=== PATIENT | male | born 2000 | race African-American/Black ===

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

== ENCOUNTER → 2019-10-28 18:02 | Outpatient (CLI) | payer MEDICARE, SELFPAY | DX: Z20.828 Contact with and (suspected) exposure to other viral communicable diseases (principal) | CPT/HCPCS: 87635; 94799; C9803; U0003 ==

== ENCOUNTER 2019-10-31 15:28 | Emergency (ER) | payer SELFPAY ==
[2019-10-31 15:31] VITALS: BP 137/59; PULSE 110; RESP 17; TEMP 38.7; O2SAT 97; BMI 34.7
--- NOTE | 2019-10-31 15:58 | ED.VIS.GEN ---
History of Present Illness Chief Complaint: Headache Informant: Patient Onset: Weeks - 1 Context: Gradual Onset Timing: Continuous Quality: aching Location: all over Current Severity: Moderate Maximum Severity: Moderate Worsened by: light Relieved by: nothing Associated Symptoms: fevers, bilat anteriolateral neck soreness, sore throat, back pain, vertigo Narrative: For about 1 week, patient has had gradual onset of pain on the left neck area below his ear, followed by same symptoms on the other side without stiffness although it hurts to turn his head/neck, sore throat with odynophagia, fevers, headache, aching throughout his back but not his arms or legs. He was initially seen in urgent care diagnosed with a bilateral ear infection. He states they put him on drops. He has not been swimming anytime recently. He has had no pain in either ear, nor changes in his hearing, nor discharge, nor did it hurt for his ears to be examined with the examiner's hands or the ear speculum on the otoscope when he was seen at urgent care, although he has had tinnitus off and on and some symptoms of vertigo when he turns his head on occasion. These have made him nauseated once but for the most part he has not had any nausea or vomiting. He denies any significant cough or shortness of breath. He has been taking in very little fluids because hurts so bad to swallow. Patient presents during the national coronavirus emergency declaration/pandemic. He denies any known contact with anyone infected with COVID-19. He denies traveling out of the immediate area recently. He was tested for COVID-19 4 days ago, as an outpatient here. It returned negative. Past Medical History - Allergies and Home Meds Allergies/Adverse Reactions: Allergies No Known Allergies Allergy (Verified 10/31/19 15:30) Primary Care Physician: Care Physician,No Primary [Primary Care Provider] - Lives: Spouse/ Significant Other Smoking Status: Never smoker Review of Systems General: Reports: Fever, Malaise. Denies: Chills, Sweats Eyes: Denies: Visual changes - bilaterally, Diplopia ENT: Reports: Sore throat, - - tinnitus. Denies: Bilateral ear pain, Rhinorrhea Cardiovascular: Denies: Chest pain, Palpitations Respiratory: Denies: Dyspnea, Cough, Dyspnea on exertion Gastrointestinal: Denies: Abdominal pain, Nausea, Vomiting, Diarrhea, Melena, Hematochezia Genitourinary: Denies: Dysuria, Hematuria, Frequency Musculoskeletal: Reports: Neck pain, Back pain. Denies: Arthralgias, Swelling, Extremity Pain Skin: Denies: Rash, Wounds Neurological: Reports: Headache, - - occ vertigo. Denies: Weakness, Numbness Physical Exam Vital Signs/Narrative: Vital Signs Temp Pulse Resp BP Pulse Ox 10/31/19 15:31 101.6 F H 110 H 17 137/59 H 97 Inital Vital Signs reviewed: Yes General: Well nourished, Well developed, No Acute Distress - malaised. photophobic. Head: Normocephalic, Atraumatic Eyes: Perrl, EOMI, - - nml conj bilat ENT: Moist mucous membranes, No rhinorrhea, TM's clear, - - Normal EAC bilaterally except for small amounts of soft cerumen. No erythema, swelling, no pain with manipulating the pinna or the tragus bilaterally. No mastoid tenderness, swelling, erythema. Neck: Supple - without meningismus, - - tender bilat superficial cervical anterior LAD. no posterior LAD. Neg Kernig and Brudzinski signs. Cardiovascular: Regular rate, Regular rhythm, No murmurs, Tachycardia - mild Respiratory: No distress, CTA bilaterally, Chest nontender Abdomen: Soft, Nontender, Nondistended, Normal bowel sounds Back: Nontender, Normal Inspection. Negative for: CVA tenderness Extremities: Nontender, No edema. Negative for: Calf Tenderness Skin: Normal color, No rash, No Trauma Neurological: Alert, Oriented x3, Cranial nerves II-XII grossly intact, Normal Strength, Normal Sensation, Normal DTR, Normal Gait Psychological: Normal affect, Normal Mood Diagnostic/Tx/Re-eval 10/31/19 15:55 Mucosa - Throat Group A Streptococcus Rapid Screen - Preliminary Laboratory Results 10/31/19 10/31/19 15:55 15:55 WBC 11.1 H RBC 4.39 L Hgb 13.5 Hct 37.4 L MCV 85.2 MCH 30.8 MCHC 36.1 H RDW Std Deviation 37.8 RDW Coeff of Bina 12.0 Plt Count 186 MPV 9.6 Immature Gran % (Auto) 0.500 Neut % (Auto) 74.7 H Lymph % (Auto) 12.5 L [place] % (Auto) 11.8 H Eos % (Auto) 0.2 Baso % (Auto) 0.3 Absolute Neuts (auto) 8.3 H Absolute Lymphs (auto) 1.39 Nucleated RBC % 0 Sodium 131 L Potassium 3.3 L Chloride 99 Carbon Dioxide 25.0 Anion Gap 7 BUN 14 Creatinine 1.13 Estim Creat Clear Calc 100.04 Est GFR (MDRD) Af Amer 105 Est GFR (MDRD) Non-Af 87 BUN/Creatinine Ratio 12.4 Glucose 132 H Calcium 8.5 - Medical Decision Making Patient was treated with IV fluids, Reglan, Toradol, meclizine, and a dose of Decadron given his pharyngitis. He does have some improvement of most of his symptoms on reevaluation. His labs are as above. His rapid strep returned negative, I repeated a COVID test given his continued fevers and symptoms that could be consistent with that, and precautions were taken while he was in the emergency department, although he had a negative test 4 days ago. We have been seeing quite a few false negatives and he may be 1. As a result I recommend quarantining himself at home until the test results return, he was given appropriate instructions on this and he does understand as does a significant other. We discussed reasons to return. Certainly other viral etiologies are in the differential, as we have been seeing some of those on other patients in the emergency department recently. ED Disposition - Plan for ED Patient: Disposition: Home or Assisted Living Diagnosis: Viral syndrome, Vertigo Instructions: ED Viral Syndrome, ED Vertigo Unspecified Prescriptions: Meclizine HCl [Antivert] 25 mg PO Q8H PRN #16 tab PRN Reason: Vertigo Transmission Status: Pending to [id number] Referrals: Leslie Cast [NON-STAFF] - 1 Week if not improving
[2019-10-31] MEDS: Ketorolac 30 MG/ML Syringe IV (16:12)
[2019-10-31] MEDS: 0.9% Normal Saline 1,000 ML 999 ML IV (16:12)
[2019-10-31] MEDS: Meclizine HCl 25 MG Tablet PO (16:13)
[2019-10-31] MEDS: dexAMETHasone 10 MG/ML Vial IV (16:13)
[2019-10-31] MEDS: Metoclopramide 10 MG/2 ML Vial 5 MG IV (16:13)
[2019-10-31 16:18] LABS: Absolute Lymphocyte Count 1.39 X10^3/uL (0.83-4.51); Absolute Neutrophil Count 8.3 X10^3/uL (2.0-7.7); Basophil# 0.03 X10^3/uL; Basophil% 0.3 % (0-1); Eosinophil# 0.02 X10^3/uL; Eosinophils% 0.2 % (0-5); Hematocrit 37.4 % (40-54); Hemoglobin 13.5 g/dL (13.0-16.5); Lymphocyte # 1.39 X10^3/ul (4.0); Lymphocyte % 12.5 % (19-41); Mean Corp Hgb Conc 36.1 g/dL (32-36); Mean Corpuscular Hgb 30.8 pg (27.0-32.0); Mean Corpuscular Volume 85.2 fL (80-94); Mean Platelet Vol. 9.6 fl (6.2-12.0); Monocyte# 1.31 X10^3/uL; Monocyte% 11.8 % (0-10); NRBC Flagged by Analyzer 0 % (0-5); Neutrophil % 74.7 % (47-70); Platelet Count 186 K/mm3 (150-450); RBC Distribution Width SD 37.8 fl (35.1-43.9); Red Blood Count 4.39 M/mm3 (4.6-6.2); White Blood Count 11.1 K/mm3 (4.4-11.0)
[2019-10-31 17:36] LABS: Anion Gap 7 (5-15); BUN 14 mg/dL (7-18); BUN/Creat Ratio 12.4 RATIO (10-20); Calcium,Total 8.5 mg/dL (8.5-10.1); Chloride 99 mmol/L (98-107); Creatinine, Serum 1.13 mg/dL (0.70-1.30); EST Glomerular Filtration Rate 87 mL/min (>60); Est Glom Filt Rate - Afr Amer 105 mL/min (>60); Estimated Creatinine Clearance 100.04 ml/min; Glucose 132 mg/dL (74-106); Potassium 3.3 mmol/L (3.5-5.1); Sodium Level 131 mmol/L (136-145)
[2019-10-31 19:35] VITALS: BP 128/97; PULSE 81; RESP 22; O2SAT 98
--- NOTE | 2019-10-31 19:37 | ED.RN ---
THIS NURSE REVIEWED D/C INSTRUCTIONS WITH PT AND VISITOR. BOTH VERBALIZED UNDERSTANDING OF INSTRUCTIONS. IV D/C. IV CATHETER INTACT. PT TOLERATED WELL. PT DENIES FURTHER NEEDS OR QUESTIONS AT THIS TIME
== END 2019-10-31 19:39 | disposition home or self-care (01) ==
PROVIDERS: Emergency Provider Emergency Medicine
DX: B34.9 Viral infection, unspecified (principal); R42 Dizziness and giddiness
CPT/HCPCS: 80048; 85025; 87635; 87880; 94799; 96361; 96374; 96375; 99284; J7030; A4216; U0003

== ENCOUNTER → 2020-10-18 11:39 | Outpatient (CLI) | payer OTHER, SELFPAY ==
[2020-10-18 15:05] LABS: Absolute Lymphocyte Count 2.34 X10^3/uL (0.83-4.51); Absolute Neutrophil Count 4.5 X10^3/uL (2.0-7.7); Basophil# 0.05 X10^3/uL; Basophil% 0.6 % (0-1); Eosinophil# 0.41 X10^3/uL; Eosinophils% 5.3 % (0-5); Hematocrit 44.7 % (40-54); Hemoglobin 14.9 g/dL (13.0-16.5); Lymphocyte # 2.34 X10^3/ul (0.83-4.51); Lymphocyte % 30.1 % (19-41); Mean Corp Hgb Conc 33.3 g/dL (32-36); Mean Corpuscular Hgb 29.7 pg (27.0-32.0); Mean Corpuscular Volume 89.2 fL (80-94); Monocyte# 0.49 X10^3/uL; Monocyte% 6.3 % (0-10); NRBC Flagged by Analyzer 0 % (0-5); Neutrophil # 4.47 X10^3/uL (2.7-7.7); Neutrophil % 57.4 % (47-70); Platelet Count 285 K/mm3 (150-450); RBC Distribution Width CV 12.1 % (11.6-14.6); RBC Distribution Width SD 39.9 fl (35.1-43.9); Red Blood Count 5.01 M/mm3 (4.6-6.2); White Blood Count 7.8 K/mm3 (4.4-11.0)
[2020-10-18 15:29] LABS: AST(SGOT) 21 U/L (15-37); Alanine Aminotransfer ALT/SGPT 39 U/L (16-61); Alkaline Phosphatase 66 U/L (45-117); Anion Gap 3 (5-15); BUN 16 mg/dL (7-18); BUN/Creat Ratio 16.1 RATIO (10-20); Calcium,Total 9.1 mg/dL (8.5-10.1); Chloride 105 mmol/L (98-107); Cholesterol 175 mg/dL (200); Creatinine, Serum 0.99 mg/dL (0.70-1.30); EST Glomerular Filtration Rate 100 mL/min (>60); Est Glom Filt Rate - Afr Amer 121 mL/min (>60); Globulin 4.2 g/dL (2.2-4.2); Glucose 95 mg/dL (74-106); High Density Lipoprotein 38 mg/dL; Potassium 4.2 mmol/L (3.5-5.1); Protein, Total 8.2 g/dL (6.4-8.2); Sodium Level 138 mmol/L (136-145); Thyroid Stim Hormone (TSH) 1.53 uIU/mL (0.358-3.74); Triglycerides 67 mg/dL; Very Low Density Lipoprotein 13 mg/dL (5-40)
== END ==
LOC: MFPLAB 11:42
PROVIDERS: PCP Family Medicine; Referring Provider Family Medicine; Visit Provider Family Medicine
DX: E66.01 Morbid (severe) obesity due to excess calories (principal); R10.9 Unspecified abdominal pain
CPT/HCPCS: 36415; 80053; 80061; 84443; 85025

== ENCOUNTER → 2020-10-21 08:43 | Outpatient (CLI) | payer OTHER, SELFPAY ==
--- NOTE | 2020-10-21 11:05 | CT_ITS ---
EXAM DESCRIPTION: CT scan of the abdomen and pelvis CLINICAL HISTORY: 20 years Male, [facility] [employer] COMPARISON: None TECHNIQUE: A CT scan of the abdomen and pelvis was performed with IV contrast contrast administration. Oral contrast was also administered. Coronal and sagittal reconstruction images were reviewed. This exam was performed according to our departmental dose-optimization program, which includes automated exposure control, adjustment of the mA and/or kV according to patient size and/or use of iterative reconstruction technique. FINDINGS: The lung bases and the base of the heart are normal. The liver is normal.The spleen is normal.The adrenal glands are normal.The head, body, and tail of the pancreas are normal. Mild left renal hydronephrosis is identified with a dilated renal pelvis possibly due to an extrarenal pelvis. No obvious evidence of left obstructive uropathy is seen. On the right side, there is an asymmetrically dilated right renal pelvis and calyces with the dilated right renal pelvis extending somewhat inferiorly. A partial right UPJ obstruction cannot be completely excluded. This also may simply represent an asymmetrical extrarenal pelvis with renal pelvic dilatation. If clinically indicated a Lasix Renogram could differentiate between these 2 entities. In any event no calculus obstruction of the right ureter is seen. The abdominal aortal is normal along its course and distribution. No paraortic lymphadenopathy is seen. No abdominal masses or lesions are seen. The CT scan of the pelvis was then reviewed. The common iliac vessels, external iliac vessels, and common femoral vessels are normal along their course and distribution No pelvis masses or lesions are seen. The appendix was carefully evaluated and is normal. No pericecal inflammatory reaction is seen. Bone scanning windows of the lumbar spine and pelvis were reviewed in the coronal and sagittal planes and appear to be normal. CT/Abdomen/Pelvis WITH Contrast IMPRESSION: 1. Bilateral extrarenal pelvises are identified significantly more pronounced on the right with right renal hydronephrosis. Because of the right renal hydronephrosis, an underlying partial UPJ obstruction cannot be completely excluded, and if clinically indicated, a LASIX renogram might be helpful for further evaluation. 2. The appendix was carefully evaluated and is normal. Electronically Signed: Jez Banegas DO at 11:43 EDT Tel , Service support ,
== END ==
PROVIDERS: PCP Family Medicine; Referring Provider Family Medicine; Visit Provider Family Medicine
DX: R10.13 Epigastric pain (principal)
CPT/HCPCS: 74177; Q9967; A4216

== ENCOUNTER 2021-04-21 23:12 | Emergency (ER) | payer OTHER, SELFPAY ==
[2021-04-21 23:13] VITALS: BP 181/93; PULSE 85; RESP 18; TEMP 36.8; O2SAT 98; BMI 40.3
--- NOTE | 2021-04-21 23:26 | CT_ITS ---
STUDY: CT ABDOMEN AND PELVIS WITHOUT CONTRAST REASON FOR EXAM: Male, 20 years old. right flank pain RADIATION DOSAGE (If Supplied By Facility): CTDIvol = ( 23.30 ) mGy, DLP = ( 1234.08 ) mGycm TECHNIQUE: Transaxial 2.5 mm images were obtained from the dome of the diaphragm to the symphysis pubis without oral contrast, and without intravenous contrast. Sagittal and coronal images were reconstructed. This examination is limited for the evaluation of gastrointestinal, solid organs and vascular structures due to the lack of intravenous and oral contrast. There is obesity, the entirety of soft tissue is not imaged. Individualized dose optimization techniques were used for this CT. COMPARISON: None. FINDINGS: The visualized lung bases are unremarkable. The visualized portions of the heart are within normal limits. Normal liver. Normal gallbladder and extrahepatic biliary system. Normal spleen. Normal pancreas. Normal bilateral adrenal glands. Slight increase in size of the previously seen larger right extrarenal pelvis with more indistinct on 2 of the right kidney and renal pelvis. The ureter is decompressed at the right UPJ level. There is a punctate nonobstructing mid renal calculus which was seen on previous examination. The right ureter is decompressed. There is no periureteral stranding. Stable small left extrarenal pelvis. Normal visualized stomach. Normal small intestine. Normal colon. The appendix is visualized and appears normal. Increase in size and numbers of ileocolonic mesenteric lymph nodes. Normal abdominal aorta. Normal inferior vena cava. Normal retroperitoneum. Decompressed thick-walled urinary bladder with mild pericystic stranding.. Normal abdominal wall. Normal osseous structures. CT/Abdomen/Pelvis without Cont IMPRESSION: Moderate to severe right hydronephrosis with indistinct contour, increase of previously seen large right extrarenal pelvis with abrupt caliber change at the expected location of the UPJ as on previous examination. No obstructing renal or ureteral calculi or hydroureter detected. A superimposed inflammation may cause similar reported clinical symptoms. Stable left small extrarenal pelvis with caliber change at the UPJ levels. Underlying UPJ stenosis bilaterally possible. Correlation to previous assessment recommended. Mesenteric adenitis suspected. No lymphadenopathy within the retroperitoneum or amy There is no appendicitis, colitis, ascites, abscess, collection, perforation or obstruction. Electronically Signed: Malka Mcleod MD at 0:25 EST Reading Location ID and State: , Service support ,
--- NOTE | 2021-04-21 23:27 | EDS_ITS ---
HPI History of Present Illness Chief Complaint: Flank Pain Detail of Chief Complaint: Flank/abdomen pain that started approximately 7:30 PM Informant: patient Onset/Context/Timing Current Severity: 12/26 Narrative Narrative: Patient presents with right-sided abdomen/flank pain that started at 7:30 PM. 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 Patient sees Dr. Thomson for this. He currently rates pain a 10 out of 10. He has had one episode of vomiting. Patient denies any fever. He denies diarrhea. He denies blood in stool or black tarry stool. Often times when he vomits he states that he has a small amount of blood in the vomitus. Prior similar symptoms: Yes PFSH PFSH Home Medications Amox-Clav 875-125 mg Tablet 1 tab PO DAILY 10/31/19 [History Last Taken Unknown] meclizine 25 mg PO Q8H PRN #16 tab 10/31/19 [Rx Last Taken Unknown] ofloxacin 1 drp EACH EAR DAILY 10/31/19 [History Last Taken Unknown] hydrocodone-acetaminophen 1 tab PO Q4H PRN PRN 2 Days #10 tablet 04/22/21 [Rx Last Taken Unknown] ondansetron 4 mg PO Q8H PRN PRN #10 tab 04/22/21 [Rx Last Taken Unknown] Allergy/AdvReac Type Severity Reaction Status Date / Time No Known Allergies Allergy Verified 04/21/21 23:15 Social History Smoking Status: Never smoker ROS ROS ED Constitutional Constitutional ED: Reports systems reviewed and no addt'l complaints, except as documented; Denies body ache(s), change in weight or chills Eyes Eyes: Denies acute decrease in peripheral vision, change in vision, double visi on or loss of vision ENT ENT ED: Reports none; Denies ear pain, lip swelling, loss taste/smell, neck pa in, otalgia or sore throat Cardiovascular Cardiovascular: Reports none; Denies abdominal pain, chest pain with activity, leg edema, lightheadedness, palpitations, rapid heart rate or syncope Respiratory/Chest Respiratory/Chest: Reports none; Denies change in mental status, dry cough, dyspnea, hemoptysis, shortness of breath at rest or shortness of breath with exertion Gastrointestinal Gastrointestinal: Reports none, abdominal pain, nausea and vomiting; Denies change in stool character, diarrhea, hematemesis, hematochezia, melena or rectal bleeding Genitourinary Genitourinary ED: Reports none; Denies abdominal discomfort, anuria, dysuria, genital pain or polyuria Musculoskeletal Musculoskeletal: Reports none and back pain; Denies arthralgias, difficulty walking, extremity pain, muscle weakness or myalgias Integumentary Reports none; Denies abscess or rash Neurologic Neurologic: Reports none; Denies abnormal gait, confusion, focal weakness, frequent falls, headache(s), loss of vision, numbness, paresthesias, radicular pain, vertigo or weakness Psychiatric Psychiatric: Reports systems reviewed and no addt'l complaints, except as documented and none; Denies behavioral changes, confusion, difficulty concentrating, hallucinations, suicidal ideation, tactile hallucinations or visual hallucinations Endocrine Endocrinology: Denies none, cold intolerance, excessive sweating, fatigue or heat intolerance Hematologic/Lymphatic Hematologic/Lymphatic: Reports none; Denies anemia, easy bleeding or easy bruising Allergic/Immunologic Allergic/Immunologic ED: Denies as per HPI, none, lip swelling, mouth swelling, throat swelling, tongue swelling or hives EXAM Physical Exam Const Vital Signs: 04/21/21 23:13 04/21/21 23:20 Temperature 98.3 F Temperature Source Temporal Pulse Rate 85 Respiratory Rate 18 Respiratory Pattern Normal Blood Pressure 181/93 H Blood Pressure Mean 122 Pulse Ox 98 Oxygen Delivery Method Room Air Positive well nourished and well developed General Appearance ED: well developed and NAD HEENT Reports TM's clear and moist mucous membranes normocephalic and atraumatic; Negative for trauma or tenderness Tympanic Membrane ED: Yes TM's clear Eyes PERRL and EOMs intact bilaterally General Eye ED: Negative for pale conjunctiva or scleral icterus Neck no lymphadenopathy, supple and no JVD General: Negative for tenderness Chest Wall inspection of chest normal and palpation of chest normal Chest: Negative for tenderness Resp normal respiratory effort and clear to auscultation bilaterally Effort and Inspection: Negative for respiratory distress or pain with movement Auscultation: Negative for rhonchi, wheezes or diminished lung sounds Cardio regular rate, regular rhythm, S1 normal heart sound, S2 normal heart sound and no murmurs Peripheral Pulses: pulses 2+ throughout GI normal to inspection, nondistended, normoactive bowel sounds, soft to palpation, non-distended and no masses GI Narrative: Patient has tenderness palpation of the right upper quadrant with some guarding. There is no rebound, rigidity, or peritoneal signs. Back/Spine no thoracic nor lumbar tenderness Back/Spine Narrative: Patient with CVA tenderness on the right. Extremity normal to inspection General Extremety ED: Negative for edema General Extremity: Negative for edema Neuro oriented x3, CN's II-XII intact bilaterally, no sensory deficits noted and gait normal Sensorium / Orientation: awake, alert, oriented to person, oriented to place and oriented to time Motor Exam: strength 5/5 throughout and strength abnormal Psych mental status grossly normal Skin no rashes or lesions noted and no wounds MDM MDM MDM Narrative Medical decision making narrative: IV line established on arrival. Patient was medicated with morphine, Zofran, and Toradol. Patient had good pain relief with that and on repeat examination rates his pain a 4 out of 10. Lab work-up was unremarkable. He did have a slightly elevated creatinine of 1.31. CT flank showed a dilated right renal pelvis somewhat increased compared to prior study. Findings consistent with patient's history of UPJ syndrome. 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 At this point patient will be given a prescription for [place] and Zofran and advised to follow-up with his urologist. Advised to return if worsening pain, fever, vomiting, or condition should worsen anyway. Patient tells me he has this type of pain about twice a month. Lab Data Attestation: I reviewed the patient's lab results. Labs: Laboratory Results - last 24 hr 04/21/21 04/21/21 04/21/21 23:40 23:42 23:42 WBC 10.4 RBC 4.80 Hgb 14.8 Hct 41.5 MCV 86.5 MCH 30.8 MCHC 35.7 RDW Std Deviation 37.7 RDW Coeff of Bina 11.9 Plt Count 279 MPV 9.6 Immature Gran % (Auto) 0.400 Neut % (Auto) 60.8 Lymph % (Auto) 26.6 [place] % (Auto) 6.3 Eos % (Auto) 5.3 H Baso % (Auto) 0.6 Absolute Neuts (auto) 6.3 Absolute Lymphs (auto) 2.76 Nucleated RBC % 0 Differential Comment SCANNED Atypical Lymphocytes RARE Sodium 140 Potassium 3.7 Chloride 108 H Carbon Dioxide 27.0 Anion Gap 5 BUN 12 Creatinine 1.31 H Estim Creat Clear Calc 88.45 Est GFR (MDRD) Af Amer 87 Est GFR (MDRD) Non-Af 72 BUN/Creatinine Ratio 9.2 L Glucose 104 Calcium 8.8 Total Bilirubin 0.30 AST 22 ALT 44 Alkaline Phosphatase 72 Total Protein 7.6 Albumin 3.9 Globulin 3.7 Albumin/Globulin Ratio 1.1 Urine Color Yellow Urine Clarity Clear Urine pH 6.5 Ur Specific [place] 1.015 Urine Protein Negative Urine Glucose (UA) Normal Urine Ketones Negative Urine Occult Blood Negative Urine Nitrite Negative Urine Bilirubin Negative Urine Urobilinogen Normal Ur Leukocyte Esterase Negative Urine RBC 0 SEEN Urine WBC 0 SEEN Ur Squamous Epith Cells 0 SEEN Urine Bacteria 0 SEEN Urine Mucus 0 SEEN Radiography Diagnostic Testing: Clinical Impression(s) from Imaging Studies Abdomen/Pelvis CT 04/21/21 23:26 IMPRESSION: Moderate to severe right hydronephrosis with indistinct contour, increase of previously seen large right extrarenal pelvis with abrupt caliber change at the expected location of the UPJ as on previous examination. No obstructing renal or ureteral calculi or hydroureter detected. A superimposed inflammation may cause similar reported clinical symptoms. Stable left small extrarenal pelvis with caliber change at the UPJ levels. Underlying UPJ stenosis bilaterally possible. Correlation to previous assessment recommended. Mesenteric adenitis suspected. No lymphadenopathy within the retroperitoneum or amy There is no appendicitis, colitis, ascites, abscess, collection, perforation or obstruction. Electronically Signed: Malka Mcleod MD at 0:25 EST Reading Location ID and State: , Service support , Discharge Plan Triage Chief Complaint: Flank Pain ED Provider: Den Keys Dx/Rx/DC Orders Clinical Impression: Acute flank pain Instructions: ED Flank Pain, Uncertain Cause Prescriptions: New hydrocodone-acetaminophen [hydrocodone-acetaminophen] 1 TABLET tablet 1 tab PO Q4H PRN PRN (Reason: Pain) 2 Days Qty: 10 RF: 0 ondansetron [ondansetron] 4 MG tablet 4 mg PO Q8H PRN PRN (Reason: Nausea) Qty: 10 RF: 0 No Action Amox-Clav 875-125 mg Tablet 1 TAB 1 tab PO DAILY RF: 0 ofloxacin 1 DROP bottle 1 drp EACH EAR DAILY RF: 0 meclizine 25 MG tablet 25 mg PO Q8H PRN (Reason: Vertigo) Qty: 16 RF: 0 Primary Care Provider: Jez Rosales Referrals: Demetris Thomson MD [STAFF PHYSICIAN] - 3-5 Days Jez Rosales MD [Primary Care Provider] - Activity Restrictions/Additional Instructions: Follow-up with your urologist regarding your UPJ syndrome Disposition Disposition: Home, Self Care
[2021-04-21] MEDS: Ketorolac 15 MG/ML Vial IV (23:39)
[2021-04-21] MEDS: Morphine 4 MG/ML Syringe IV (23:39)
[2021-04-21] MEDS: Ondansetron 4 MG/2 ML Vial IV (23:39)
[2021-04-21] MEDS: 0.9% Normal Saline 1,000 ML 150 ML IV (23:39)
[2021-04-21 23:48] LABS: Bacteria 0 SEEN /hpf (None Seen); Mucous, Urine 0 SEEN /hpf (<or=2+); Red Blood Cells-Urine 0 SEEN /hpf (0-5); Squamous Epithelial Cells - UA 0 SEEN /hpf (0-5); White Blood Cells 0 SEEN /hpf (0-5)
[2021-04-21 23:51] LABS: Color, Urine Yellow (Yellow); Glucose, Dipstick Normal (Normal); Ketone-Dipstick Negative (Negative); Leukocyte Esterase-Dipstick Negative /ul (Negative); Nitrite-Dipstick Negative (Negative); Occult Blood-Urine Negative /ul (Negative); Protein-Dipstick Negative (Negative); Specific Gravity, Urine 1.015 (1.002-1.030); Urine Bilirubin Dipstick Negative (Negative); Urine Clarity Clear (Clear); Urine Urobilinogen Normal (Normal); Urine pH 6.5 (5.0 - 8.0)
[2021-04-21 23:54] LABS: Absolute Lymphocyte Count 2.76 X10^3/uL (0.83-4.51); Absolute Neutrophil Count 6.3 X10^3/uL (2.0-7.7); Basophil# 0.06 X10^3/uL; Basophil% 0.6 % (0-1); Differential Indicated SCAN CRITERIA MET; Eosinophil# 0.55 X10^3/uL; Eosinophils% 5.3 % (0-5); Hematocrit 41.5 % (40-54); Hemoglobin 14.8 g/dL (13.0-16.5); Lymphocyte # 2.76 X10^3/ul (0.83-4.51); Lymphocyte % 26.6 % (19-41); Mean Corp Hgb Conc 35.7 g/dL (32-36); Mean Corpuscular Hgb 30.8 pg (27.0-32.0); Mean Corpuscular Volume 86.5 fL (80-94); Mean Platelet Vol. 9.6 fl (6.2-12.0); Monocyte# 0.65 X10^3/uL; Monocyte% 6.3 % (0-10); NRBC Flagged by Analyzer 0 % (0-5); Neutrophil % 60.8 % (47-70); POSITIVE MORPHOLOGY YES; Platelet Count 279 K/mm3 (150-450); RBC Distribution Width CV 11.9 % (11.6-14.6); RBC Distribution Width SD 37.7 fl (35.1-43.9); White Blood Count 10.4 K/mm3 (4.4-11.0)
[2021-04-22 00:07] LABS: ALB/GLOB Ratio 1.1 RATIO (0.9-2.4); AST(SGOT) 22 U/L (15-37); Alanine Aminotransfer ALT/SGPT 44 U/L (16-61); Albumin, Serum 3.9 g/dL (3.2-5.0); Alkaline Phosphatase 72 U/L (45-117); Anion Gap 5 (5-15); BUN 12 mg/dL (7-18); BUN/Creat Ratio 9.2 RATIO (10-20); Calcium,Total 8.8 mg/dL (8.5-10.1); Chloride 108 mmol/L (98-107); Creatinine, Serum 1.31 mg/dL (0.70-1.30); EST Glomerular Filtration Rate 72 mL/min (>60); Est Glom Filt Rate - Afr Amer 87 mL/min (>60); Estimated Creatinine Clearance 88.45 ml/min; Globulin 3.7 g/dL (2.2-4.2); Glucose 104 mg/dL (74-106); Potassium 3.7 mmol/L (3.5-5.1); Protein, Total 7.6 g/dL (6.4-8.2); Sodium Level 140 mmol/L (136-145)
[2021-04-22 00:14] LABS: Atypical Lymphocyte RARE %; Differential Comment SCANNED
[2021-04-22] MEDS: Morphine 4 MG/ML Syringe IV (00:47)
[2021-04-22 00:48] VITALS: BP 127/70
== END 2021-04-22 00:55 | disposition home or self-care (01) ==
PROVIDERS: Emergency Provider Emergency Medicine; PCP Family Medicine; Visit Provider Emergency Medicine
DX: R10.9 Unspecified abdominal pain (principal); N28.89 Other specified disorders of kidney and ureter; R11.10 Vomiting, unspecified
CPT/HCPCS: 74176; 80053; 81001; 85025; 96361; 96374; 96375; 99283; J7030; A4216; J2405

== ENCOUNTER 2021-05-16 20:34 | Emergency (ER) | payer OTHER, SELFPAY ==
[2021-05-16 20:34] VITALS: BP 148/94; PULSE 100; RESP 18; TEMP 36.7; O2SAT 98; BMI 41.8
--- NOTE | 2021-05-16 22:03 | EDS_ITS ---
HPI History of Present Illness Chief Complaint: Laceration Detail of Chief Complaint: Right index finger Informant: patient Occured/Mechanism Mechanism/Context: Yes injury Onset/Context/Timing Onset: Today and Hours Context: Sudden Onset Timing: Continuous Quality of Pain: Sharp Current Severity: Mild Maximum Severity: Mild Associated Symptoms Associated Symptoms: Negative for Parasthesia, Weakness and Loss of Funtion Narrative Narrative: 21-year-old male [id number]. Was moving a cage and it slipped pulling or carrying it and cut the palmar aspect of his right index finger at the distal phalanx. Denies any other injuries. He believes his last tetanus shot was about 9 years ago and wants to be updated. Tetanus Immunization: 5-10 years Prior similar symptoms: No Recent Illness/Hospitalization: No PFSH PFSH Medical History no medical history Home Medications NK 05/16/21 [History Last Taken Unknown] Allergy/AdvReac Type Severity Reaction Status Date / Time No Known Allergies Allergy Verified 05/16/21 20:36 Social History Smoking Status: Never smoker ROS ROS ED ROS Narrative Denies recent illness. Review of Systems ROS Unobtainable: Denies due to encephalopathy Constitutional Constitutional ED: Denies fever(s) Eyes Eyes: Denies change in vision ENT ENT ED: Denies ear pain Cardiovascular Cardiovascular: Denies chest pain Respiratory/Chest Respiratory/Chest: Denies dyspnea Gastrointestinal Gastrointestinal: Denies abdominal pain Genitourinary Genitourinary ED: Denies dysuria Musculoskeletal Musculoskeletal: Denies myalgias Integumentary Denies rash Neurologic Neurologic: Denies headache(s) Psychiatric Psychiatric: Denies depression Hematologic/Lymphatic Hematologic/Lymphatic: Denies easy bruising Allergic/Immunologic Allergic/Immunologic ED: Denies urticaria EXAM Physical Exam Narrative Exam Narrative: 18-year-old male no acute distress vital signs stable afebrile. Index finger on his right hand palmar aspect distal phalanx has about a 3 cm laceration above the skin and subcu tissue. He has full flexion-extension. No bony deformity. Normal sensation. No foreign body. No signs of infection. Will need to be repaired. Const Vital Signs: 05/16/21 20:34 Temperature 98.1 F Temperature Source Temporal Pulse Rate 100 Respiratory Rate 18 Blood Pressure 148/94 H Blood Pressure Mean 112 Pulse Ox 98 Oxygen Delivery Method Room Air Positive well nourished and well developed; Negative for cachectic, contractures or unkempt General Appearance ED: well developed and NAD; Negative for unkempt, cachectic or contractures Nutritional Appearance: Negative for cachectic HEENT Reports moist mucous membranes normocephalic and atraumatic Eyes PERRL and EOMs intact bilaterally Neck full ROM and supple General: Negative for tenderness Chest Wall inspection of chest normal and palpation of chest normal Resp normal respiratory effort and clear to auscultation bilaterally Auscultation: Negative for rales, rhonchi or diminished lung sounds Cardio regular rate, regular rhythm, S1 normal heart sound, S2 normal heart sound and no murmurs GI non-tender, non-distended and no masses Auscultation: normoactive bowel sounds Palpation: soft; Negative for tender Back/Spine no CVA tenderness Extremity normal to inspection and full ROM Extremity Narrative: Laceration palmar aspect right index finger. 3 cm. Full range of motion. Neurovascular intact. Full flexion-extension. No foreign body. General Extremety ED: Negative for edema General Extremity: Negative for edema Neuro oriented x3 and moves all extremities Sensorium / Orientation: alert, oriented to person, oriented to place and oriented to time Motor Exam: strength 5/5 throughout Psych mental status grossly normal Appearance: Negative for unkempt Attitude: No agitated Mood & Affect: Negative for depressed or tearful Skin Lesions: no lesions Rashes: no rashes Trauma: laceration; Negative for no lacerations or abrasions MDM MDM MDM Narrative Medical decision making narrative: Right index finger laceration. Discussed with patient he was sutured. Procedures Lacerations Right index finger laceration: Length: 1.18 in Depth: Sub Q Shape: Linear Prep: Tian Laceration repair: Irrigated, Lidocaine and Local Number of Sutures/Dysart: 3 Suture Information: Ethilon and 4-0 Comment: Redness finger laceration. Local anesthetized with lidocaine. Saline irrigated with saline. Washed which Rupesh explored. The right side full range of motion. No tendon injury. No joint involvement. 24 closed using simple interrupted 4-0 Ethilon sutures. Proper hemostasis wound closure obtained. Patient tolerated procedure well. He was instructed on wound care. Discharge Plan Triage Chief Complaint: Laceration ED Provider: Deondre Don Dx/Rx/DC Orders Clinical Impression: Finger laceration Instructions: ED Laceration, Hand: All Closures Prescriptions: No Action NK RF: 0 Primary Care Provider: Jez Rosales Referrals: Jez Rosales MD [Primary Care Provider] - 7 Days for suture removal Activity Restrictions/Additional Instructions: Trace signs of infection. If redness, swelling, streaks or pus seen return. Stitches out in 7 to 10 days. Clean daily with soap and water or peroxide and water. Apply anabolic ointment. Motrin and Tylenol for pain. Your tetanus shot is now up-to-date for the next 10 years. Disposition Disposition: Home, Self Care
[2021-05-16] MEDS: Diphth,Pertuss(Acell),Tet Vac 0.5 ML Vial IM (23:10)
== END 2021-05-16 23:14 | disposition home or self-care (01) ==
PROVIDERS: Emergency Provider Emergency Medicine; PCP Family Medicine; Visit Provider Emergency Medicine
DX: S61.210A Laceration without foreign body of right index finger without damage to nail, initial encounter (principal); W26.8XXA Contact with other sharp object(s), not elsewhere classified, initial encounter; Y93.89 Activity, other specified
CPT/HCPCS: 12002; 90471; 90715; 99282

== ENCOUNTER 2021-06-15 05:57 | Day surgery (SDC) | payer OTHER, SELFPAY ==
--- NOTE | 2021-06-07 08:50 | EKG12_ITS ---
Test Reason : PREOP Blood Pressure : / mmHG Vent. Rate : 065 BPM Atrial Rate : 065 BPM P-R Int : 136 ms QRS Dur : 102 ms QT Int : 408 ms P-R-T Axes : 054 046 051 degrees QTc Int : 424 ms Normal sinus rhythm with sinus arrhythmia Normal ECG Confirmed by BARRON FERRARI, JANNA ([id number]), international editorial producer BETTY MAHAJAN ([id number]) on 06/08/2021 8:51:45 AM Referred By: Demetris Thomson Confirmed By:JANNA MART MD
[2021-06-15] VITALS (10 sets, daily range): BP systolic 141–182; BP diastolic 68–97; PULSE 72–95; RESP 14–16; TEMP 36.3–37.6; O2SAT 91–99; BMI 42.3
[2021-06-15] MEDS: Lactated Ringers 1,000 ML 30 ML IV ×2 (06:50→08:45)
--- NOTE | 2021-06-15 07:30 | URE_PTH ---
PATIENT: OSMIN OATES LOC: [facility] U#:[id number] AGE/SX: 21/M ROOM: RE06/15/[address]: Dr. Demetris Thomson MD : 2000 BED: DIS: 06/15/2021 SPEC #: [id number] RECD: 06/15/21 11:30 STATUS: KENNEDI BRAVO #: [id number] MARIA GUADALUPE: 06/15/21 07:[address]: Demetris Thomson DEPT: SURGICAL PATHOLOGY RECD BY: Tiffanie Alfonso ENTERED: 06/15/21 12:29 SP TYPE: URETER BX OTHR DR: Dr. 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 SHERRY:hazel 06/16/2021 MICROSCOPIC DESCRIPTION Slides are reviewed. GROSS DESCRIPTION Received in fixative is one container labeled with the patient's name and designated ureteropelvic junction segment. The specimen consists of a piece of becerril soft tissue measuring 1.5 x 0.6 x 0.2 cm. The specimen is bisected and submitted entirely in one cassette. / SHERRY:hazel 06/15/2021 TC:5 CPT: 07859
--- NOTE | 2021-06-15 07:36 | PCM.HP.STD ---
HPI - General HPI Narrative OSMIN OATES, is a 21 M who presents for right laparoscopic robotic asssited UJP repair. [facility] Medical History (Updated 06/15/21 @ 07:[address] Demetris Thomson MD) Alcohol use COVID Gastric reflux Non-smoker Rash Home Medications ciprofloxacin HCl [Cipro] 500 mg PO BID #10 tab 06/15/21 [Rx Last Taken Unknown] docusate sodium [Colace] 100 mg PO BID #20 cap 06/15/21 [Rx Last Taken Unknown] oxycodone-acetaminophen 1 tab PO Q6H PRN 7 Days #20 tab 06/15/21 [Rx Last Taken Unknown] Allergy/AdvReac Type Severity Reaction Status Date / Time No Known Allergies Allergy Verified 06/15/21 06:22 Social History Smoking Status: Never smoker Vital Signs Vital Signs Vital Signs: 06/15/21 06:23 Temperature 99.6 F H Temperature Source Temporal Pulse Rate 72 Respiratory Rate 16 Respiratory Pattern Normal Blood Pressure 141/78 H Blood Pressure Mean 99 Blood Pressure Source Monitor Blood Pressure Position Semi-Fowlers Blood Pressure Location Right Arm Pulse Ox 99 Oxygen Delivery Method Room Air Weight Weight: 130 kg Body Mass Index (BMI) 42.3 Results Lab / Micro Data Micro: Microbiology 06/14/21 08:30 Interface Orders SARS-CoV-2 Antigen (Rapid) - Final
--- NOTE | 2021-06-15 07:37 | PCM.DC ---
Discharge Instructions Diet Discharge Diet: No restrictions Activity Discharge Activity: Return to Normal Activity and May Not Drive (while taking narcotic pain medications.) Dressing / Incision Call your doctor if you observe: Fever of 101 or Higher Catheter: Pickett to leg bag and Pickett to large bag Drain: [place] Follow Up Care Please Follow Up With: Demetris Thomson MD When: Call [phone] for an appointment Test Results: Test results from this visit will be discussed in further detail at your follow-up appointment, if applicable. Discharge Plan Admission Primary Reason for Your Visit: ROBOTIC PYELOPLASTY REPAIR Attending Provider: Demetris Thomson Primary Care Provider: Jez Rosales Discharge Orders/Prescriptions Prescriptions: New oxycodone-acetaminophen 5-325 mg tablet 1 tab PO Q6H PRN (Reason: pain) 7 Days Qty: 20 RF: 0 docusate sodium [Colace] 100 mg capsule 100 mg PO BID Qty: 20 RF: 0 ciprofloxacin HCl [Cipro] 500 mg tablet 500 mg PO BID Qty: 10 RF: 0 Referrals / Follow Up: Demetris Thomson MD [STAFF PHYSICIAN] - Jez Rosales MD [Primary Care Provider] - Disposition Disposition (needs filled in before D/C Order can be placed): Home, Self Care
[2021-06-15] MEDS: Lubricating Jelly 60 GM Tube 30 GM (07:48)
[2021-06-15] MEDS: Bupivacaine Mpf 0.5% 30 ML VIAL (07:50)
--- NOTE | 2021-06-15 09:47 | PCM.OPRPT ---
Report of Operation Date of Procedure: 06/15/21 Pre-Operative Diagnosis: Right UPJ obstruction Post-Operative Diagnosis: The same Surgery/Procedure Performed:: Laparoscopic robotic assisted right dismembered pyeloplasty, cystoscopy right retrograde pyelogram interpretation fluoroscopic images and right stent placement Description of Surgical Findings:: Indication this is a 21-year-old young male presented to the emergency room with severe pain on the right side CT scan was done that demonstrated a very dilated right renal pelvis UPJ obstruction at the site and a crossing vessel right over the UPJ obstruction. Reviewing the CAT scan discussed with the patient the recommended treatment would be observation or surgical intervention with a correction of the UPJ obstruction since the patient has been severely symptomatic with severe pain in the right side he desires to have the UPJ obstruction repaired. We talked about how the surgery is done organ to do a laparoscopic approach for minimally invasive approach to repair this junction he understands that while the reroute the ureter over the blood vessels and he will need a stent and go home with a catheter. We talked about the rare chance of failure of the procedure that there is 2 to 3 to 5% chance that the procedure will fail and he may need secondary procedures hopefully not and he understands he will need a stent for about 6 weeks allow to heal up. Patient was taken back to the operating room at the smooth induction of general anesthesia he was placed in dorsolithotomy position. Penis and testicles were prepped and draped in usual sterile fashion I went in the bladder with a 21 [place] rigid cystourethroscope inspected the prostate the urethra this was all normal the trigone was normal the bladder was normal I then identified the right ureteral orifice I cannulated with a 0.038 hydrophilic Glidewire advanced this up into the kidney over the Glidewire advanced a 5 [place] open-ended ureteral catheter and we performed a retrograde pyelogram that again confirmed a kinking ureter right at the UPJ obstruction again looking at the CAT scan this corresponds to the area where the blood vessel was. After the UPJ obstruction was seen and confirmed on retrograde pyelogram then a stent was advanced over the wire and the stent was put up into the kidney double-pigtail stent 6 [place] by 26 cm stent and then we placed a 16 [place] catheter into the bladder. This point and the patient was repositioned for a laparoscopic robotic assisted approach semimodified flank position is a very large individual and has was 130 kg so we spent extra time to make sure he was properly padded and secured to the table. After this was done then using the Veress needle we placed a Veress needle into the peritoneal cavity placed the middle trocar right arm trocar left arm trocar under direct visualization and then placed a suction trocar for the cyst. The da Kristen XI robot was then docked I did use a 30 degree down lens camera scissors my right arm and progress in the left arm and proceeded with the dissection first we reflected the colon off the kidney coming superiorly and inferiorly reflecting on the white line of [place] to the colon was out of the way I then went identified the vena cava and then above this and identified the gonadal vein and then above this was the ureter we then traced the ureter up towards the kidney going very slowly as we encountered small little blood vessels and we did not take the gonadal vein and went above the gonadal vein and then finally we encountered a pulsating large blood vessel which was a one of the main arteries to the right kidney the ureter was crossing underneath this and this was causing kinking of the ureter at the site I then dissected the ureter from out underneath this blood vessel and then I went above the blood vessel and dissected out the renal pelvis then the area of the UPJ was somewhat difficult to tell but approximated by where it was underneath the blood vessel and this was then cut I then was able to pull the ureter and the stent out from underneath the blood vessel and then over the top we then spatulated the end of the ureter opened up the renal pelvis and then proceeded with the anastomosis of the spatulated end of the ureter to the renal pelvis using 4-0 Monocryl with interrupted loose stitches we did a nice approximation with a wide open channel. After the approximation was done no stent was in place this was done over the stent we then irrigated the area there was no major bleeding placed and FloSeal in the area of the repair to catch any small bleeders all the ports were removed and the abdomen was desufflated and the incisions were closed with subcuticular stitches Pickett catheter will be remained in place he will go home with a catheter today follow-up next week for the catheter removal and in 6 weeks we will remove the stent. Surgeon: sylvie Type of Anesthesia: General Drains: stent right side Admit VTE Documentation VTE Present on Admission: No VTE Mechan Device Prophylaxis: SCD's VTE Pharm Prophylaxis ordered?: No
[2021-06-15] MEDS: Ketorolac 30 MG/ML Syringe IV (10:33)
--- NOTE | 2021-06-15 11:39 | SUR.PHASEI ---
updated with school secretary at 1 hr in pacu
[2021-06-15] MEDS: oxyCODONE 5 MG Tablet PO (13:32)
== END 2021-06-15 23:59 | disposition home or self-care (01) ==
LOC: SDC 05:58 → AC 05:58
PROVIDERS: PCP Family Medicine; Referring Provider Urology; Visit Provider Urology
PROC: 8E0W4CZ Robotic Assisted Procedure of Trunk Region, Percutaneous Endoscopic Approach (ICD-10-PCS; CPT 50544; principal; 2021-06-15 07:00)
DX: Q62.11 Congenital occlusion of ureteropelvic junction (principal); Z86.16 Personal history of COVID-19; K21.9 Gastro-esophageal reflux disease without esophagitis; R21 Rash and other nonspecific skin eruption
CPT/HCPCS: 50544; S2900; 00862; 52332; 76000; 87426; 88305; 93005; C9803; J7120; A4216; C1769; C2617; J2405

== ENCOUNTER 2021-07-25 14:58 | Emergency (ER) | payer OTHER, SELFPAY ==
[2021-07-25 15:01] VITALS: BP 138/74; PULSE 84; RESP 16; TEMP 36.2; O2SAT 97; BMI 41.3
--- NOTE | 2021-07-25 17:44 | EX.ED.VIS.UR ---
HPI HPI - URI History of Present Illness Chief Complaint: Sore Throat Informant: patient Onset/Context/Timing Onset: Days (3) Context: Gradual Onset Timing: Continuous Quality: Scratchy Location: Throat Associated Symptoms Associated Symptoms: Positive for Myalgias and Nonproductive cough; Negative for Nasal Congestion, Headache, Sinus Pressure, Nausea, Vomiting, Diarrhea, Shortness of Breath, Chest Pain, Hemoptysis and Productive Cough Narrative Narrative: Patient presents with sore throat and cough that has been getting worse over the last 3 days. Patient states his throat feels scratchy. Patient states this has been constant over the last 3 days. Patient states he developed a cough whenever his mouth gets dry. Patient denies any difficulty breathing or difficulty swallowing. Patient admits to some myalgias couple of days ago but denies any myalgias at the present time. Patient denies any sputum production. Patient denies any fevers or chills. Patient states his tested positive for COVID-19 recently. ROS ROS ED Constitutional Constitutional ED: Denies chills or fever(s) Eyes Eyes: Denies blurry vision or change in vision ENT ENT ED: Reports rhinorrhea and sore throat Cardiovascular Cardiovascular: Denies chest pain or palpitations Respiratory/Chest Respiratory/Chest: Reports cough; Denies dyspnea Gastrointestinal Gastrointestinal: Denies nausea or vomiting Genitourinary Genitourinary ED: Denies dysuria or hematuria Musculoskeletal Musculoskeletal: Denies back pain or neck pain Integumentary Denies abscess or rash Neurologic Neurologic: Denies headache(s) or weakness Allergic/Immunologic Allergic/Immunologic ED: Denies mouth swelling or urticaria PFSH PFSH Medical History Alcohol use COVID Gastric reflux Non-smoker Rash Medical History no medical history Home Medications ciprofloxacin HCl [Cipro] 500 mg PO BID #10 tab 06/15/21 [Rx Last Taken Unknown] docusate sodium [Colace] 100 mg PO BID #20 cap 06/15/21 [Rx Last Taken Unknown] oxycodone-acetaminophen 1 tab PO Q6H PRN 7 Days #20 tab 06/15/21 [Rx Last Taken Unknown] Allergy/AdvReac Type Severity Reaction Status Date / Time No Known Allergies Allergy Verified 06/15/21 06:22 Social History Smoking Status: Never smoker EXAM Physical Exam Const Vital Signs: 07/25/21 15:01 07/25/21 17:36 Temperature 97.1 F L Temperature Source Temporal Pulse Rate 84 Respiratory Rate 16 Respiratory Pattern Normal Blood Pressure 138/74 H Blood Pressure Mean 95 Pulse Ox 97 Oxygen Delivery Method Room Air Positive well nourished and well developed General Appearance ED: well developed and NAD HEENT Reports moist mucous membranes Neck supple and no JVD Resp normal respiratory effort and clear to auscultation bilaterally Cardio regular rate, regular rhythm and no murmurs GI normal to inspection, nondistended, normoactive bowel sounds and non-tender Palpation: soft Extremity normal to inspection General Extremety ED: Negative for edema or tenderness General Extremity: Negative for edema Neuro oriented x3, CN's II-XII intact bilaterally and no sensory deficits noted Sensorium / Orientation: alert Motor Exam: strength 5/5 throughout Psych mental status grossly normal Skin no rashes or lesions noted MDM MDM MDM Narrative Medical decision making narrative: COVID-19 rapid antigen was obtained and was positive. Patient was advised of his findings. Patient was given a note for work. Patient was instructed to follow-up with his primary care physician in 5 to 7 days. Patient was instructed to take Tylenol or ibuprofen as needed for any aches or fevers. Patient understood and was agreeable with the plan. All questions were answered. Discharge Plan Triage Chief Complaint: Sore Throat ED Provider: Yuri Giles Dx/Rx/DC Orders Clinical Impression: COVID-19, Morbid obesity with BMI of 40.0-44.9, adult Instructions: Coronavirus Disease 2019 (COVID-19): Overview Prescriptions: No Action oxycodone-acetaminophen 5-325 mg tablet 1 tab PO Q6H PRN (Reason: pain) 7 Days Qty: 20 RF: 0 docusate sodium [Colace] 100 mg capsule 100 mg PO BID Qty: 20 RF: 0 ciprofloxacin HCl [Cipro] 500 mg tablet 500 mg PO BID Qty: 10 RF: 0 Stand Alone Forms: ED Work / School Excuse Primary Care Provider: Care Physician,No Primary Referrals: Jez Rosales MD [STAFF PHYSICIAN] - 5-7 Days Disposition Disposition: Home, Self Care
--- NOTE | 2021-07-25 19:44 | CM.ED ---
Social Work Note Reason for referral: Case Find, No PCP SW met with pt and introduced self. Pt confirms he has no PCP. SW provided pt with PCP list. Pt denied additional needs or concerns at this time. Glenys Avendano NEUROLOGY SPECIALIST, CORNER TRIMMER OPERATOR
== END 2021-07-25 19:32 | disposition home or self-care (01) ==
PROVIDERS: Emergency Provider Emergency Medicine; Visit Provider Emergency Medicine
DX: U07.1 COVID-19 (principal); E66.01 Morbid (severe) obesity due to excess calories; Z68.41 Body mass index [BMI] 40.0-44.9, adult; K21.9 Gastro-esophageal reflux disease without esophagitis
CPT/HCPCS: 87426; 99282

== ENCOUNTER 2021-08-28 16:14 | Emergency (ER) | payer OTHER, SELFPAY ==
[2021-08-28 16:15] VITALS: BP 161/94; PULSE 110; RESP 16; TEMP 37.1; O2SAT 95; BMI 40.1
--- NOTE | 2021-08-28 16:28 | ED.VIS.GI ---
HPI HPI - GI History of Present Illness Chief Complaint: Abd Pain Informant: patient Abdominal Pain/Flank Pain Onset: Yesterday Timing: Intermittent Quality: Burning Location: LLQ Current Severity: Gone Maximum Severity: Mild Worsened by: Nothing Relieved by: Nothing Nausea/Vomiting/Emesis GI Symptom: Negative for Nausea and Vomiting Diarrhea/Melena/Hematochezia GI Symptom: Negative for Diarrhea, Melena and Hematochezia Associated Symptoms Associated Symptoms: Negative for Dysuria, Frequency, Hematuria and Urgency Narrative Narrative: 21-year-old male past medical history of prior reflux. 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 States yesterday he was moving around the couch and noticed discomfort when he moves his left lower quadrant. He denies any nausea vomiting diarrhea or constipation. Denies any fever or chills. He denies any dysuria or hematuria. If he sitting in the bed he is having no pain if he moves he has some mild discomfort. He denies any abdominal trauma. He denies any injury from lifting, carrying anything or exercising. Prior similar symptoms: No Recent Illness/Hospitalization: No PFSH PFSH Medical History Alcohol use COVID Gastric reflux Non-smoker Rash Home Medications NK 08/28/21 [History Last Taken Unknown] Allergy/AdvReac Type Severity Reaction Status Date / Time No Known Allergies Allergy Verified 08/28/21 16:17 Surgical History History of kidney surgery Social History Smoking Status: Never smoker ROS ROS ED ROS Narrative Left lower quadrant abdominal pain with movement only. Review of Systems ROS Unobtainable: Denies due to encephalopathy Constitutional Constitutional ED: Denies fever(s) ENT ENT ED: Denies ear pain Cardiovascular Cardiovascular: Denies chest pain Respiratory/Chest Respiratory/Chest: Denies dyspnea Gastrointestinal Gastrointestinal: Reports abdominal pain; Denies constipation, diarrhea, melena, nausea or vomiting Genitourinary Genitourinary ED: Denies dysuria or hematuria Musculoskeletal Musculoskeletal: Denies myalgias Integumentary Denies rash Neurologic Neurologic: Denies headache(s) Psychiatric Psychiatric: Denies depression Endocrine Endocrinology: Denies polyuria Hematologic/Lymphatic Hematologic/Lymphatic: Denies easy bruising Allergic/Immunologic Allergic/Immunologic ED: Denies urticaria EXAM Physical Exam Narrative Exam Narrative: 18-year-old male no acute distress vital signs stable afebrile. H EENT exam unremarkable. Neck nontender. Lungs are clear. Heart regular rhythm. Abdomen soft nontender normal bowel sounds no peritoneal signs. There is absolutely no reproducible abdominal tenderness. No signs of trauma. When he rotates about his trunk he has some very minimal left lower quadrant pain. Remaining still he is pain-free. Back nontender. Moving all 4 extremities. Neurologically is awake and alert. There is no signs of hernia on his abdomen either. Const Vital Signs: 08/28/21 16:15 Temperature 98.8 F Temperature Source Temporal Pulse Rate 110 H Respiratory Rate 16 Blood Pressure 161/94 H Blood Pressure Mean 116 Pulse Ox 95 Oxygen Delivery Method Room Air Positive well nourished, well developed and obese; Negative for cachectic, contractures or unkempt General Appearance ED: well developed and NAD; Negative for unkempt, cachectic, contractures or pallor Nutritional Appearance: obese; Negative for cachectic HEENT Reports moist mucous membranes normocephalic and atraumatic; Negative for trauma or tenderness Eyes PERRL and EOMs intact bilaterally General Eye ED: Negative for pale conjunctiva or scleral icterus Neck no lymphadenopathy, supple and no JVD General: Negative for tenderness Resp normal respiratory effort and clear to auscultation bilaterally Auscultation: Negative for rales, rhonchi or wheezes Cardio regular rate, regular rhythm, S1 normal heart sound, S2 normal heart sound and no murmurs GI non-tender, non-distended and no masses Auscultation: normoactive bowel sounds Palpation: soft; Negative for tender, guarding or rigid Back/Spine no CVA tenderness General Back: Negative for CVA tenderness Cervical Spine: Negative for cervical spine tenderness Thoracic Spine / Upper Back: Negative for thoracic spinal tenderness Extremity full ROM General Extremety ED: Negative for edema or tenderness General Extremity: Negative for edema Neuro moves all extremities Sensorium / Orientation: alert, oriented to person, oriented to place and oriented to time; Negative for orientation impaired, confused, lethargic or stuporous Motor Exam: strength 5/5 throughout Psych mental status grossly normal and thought process normal Appearance: Negative for unkempt Skin no wounds General Skin Exam: Negative for jaundice or pallor Lesions: no lesions Rashes: no rashes MDM MDM MDM Narrative Medical decision making narrative: 21-year-old male with atypical abdominal pain with movement only. Exam benign. I am getting screening labs due to his prior history of ureter repair surgery. His abdomen is benign. Repeat exam at 5:30 PM unchanged. Abdomen benign. We discussed his test results outpatient follow-up if not improving. I suspect this to be of a musculoskeletal etiology. Possibly abdominal wall strain. Lab Data Attestation: I reviewed the patient's lab results. Lab results narrative: Labs normal. CBC showed a white count of 6. H&H 14 and 41. Electrolytes normal. Gap of 3. Normal BUN and creatinine at 13 and 0.9. Glucose 126. UA negative. Labs: Laboratory Results - last 24 hr 08/28/21 08/28/21 08/28/21 16:40 16:55 16:55 WBC 6.1 RBC 4.84 Hgb 14.6 Hct 41.9 MCV 86.6 MCH 30.2 MCHC 34.8 RDW Std Deviation 40.1 RDW Coeff of Bina 12.7 Plt Count 258 MPV 9.7 Immature Gran % (Auto) 0.300 Neut % (Auto) 48.5 Lymph % (Auto) 38.3 [place] % (Auto) 6.0 Eos % (Auto) 6.2 H Baso % (Auto) 0.7 Absolute Neuts (auto) 3.0 Absolute Lymphs (auto) 2.35 Nucleated RBC % 0 Sodium 139 Potassium 3.5 Chloride 107 Carbon Dioxide 29.0 Anion Gap 3 L BUN 13 Creatinine 0.97 Estim Creat Clear Calc 122.29 Est GFR (MDRD) Af Amer 123 Est GFR (MDRD) Non-Af 102 BUN/Creatinine Ratio 13.4 Glucose 126 H Calcium 9.2 Urine Color Yellow Urine Clarity Clear Urine pH 6.0 Ur Specific [place] 1.015 Urine Protein Negative Urine Glucose (UA) Normal Urine Ketones Negative Urine Occult Blood Negative Urine Nitrite Negative Urine Bilirubin Negative Urine Urobilinogen Normal Ur Leukocyte Esterase Negative Urine RBC 0-5 SEEN Urine WBC 0-5 SEEN Ur Squamous Epith Cells 0-5 SEEN Urine Bacteria RARE Urine Mucus RARE Discharge Plan Triage Chief Complaint: Abd Pain ED Provider: Deondre Don Dx/Rx/DC Orders Clinical Impression: Abdominal pain Instructions: Abdominal Pain Prescriptions: No Action NK RF: 0 Primary Care Provider: Care Physician,No Primary Referrals: Jez Rosales MD [STAFF PHYSICIAN] - 1 Week if not improving Care Physician,No Primary [Primary Care Provider] - Activity Restrictions/Additional Instructions: Your lab work was completely normal as was your kidney function in your urine. I suspect this to be a strain of your abdominal wall. Tylenol or Motrin for pain. Follow-up if not improving. Return if a lot worse. Disposition Disposition: Home, Self Care
[2021-08-28 17:05] LABS: Absolute Lymphocyte Count 2.35 X10^3/uL (0.83-4.51); Basophil# 0.04 X10^3/uL; Basophil% 0.7 % (0-1); Eosinophil# 0.38 X10^3/uL; Eosinophils% 6.2 % (0-5); Hematocrit 41.9 % (40-54); Hemoglobin 14.6 g/dL (13.0-16.5); Lymphocyte # 2.35 X10^3/ul (0.83-4.51); Lymphocyte % 38.3 % (19-41); Mean Corp Hgb Conc 34.8 g/dL (32-36); Mean Corpuscular Hgb 30.2 pg (27.0-32.0); Mean Corpuscular Volume 86.6 fL (80-94); Mean Platelet Vol. 9.7 fl (6.2-12.0); Monocyte# 0.37 X10^3/uL; NRBC Flagged by Analyzer 0 % (0-5); Neutrophil # 2.97 X10^3/uL (2.7-7.7); Neutrophil % 48.5 % (47-70); Platelet Count 258 K/mm3 (150-450); RBC Distribution Width CV 12.7 % (11.6-14.6); RBC Distribution Width SD 40.1 fl (35.1-43.9); Red Blood Count 4.84 M/mm3 (4.6-6.2); White Blood Count 6.1 K/mm3 (4.4-11.0)
[2021-08-28 17:05] LABS: Glucose, Dipstick Normal (Normal); Ketone-Dipstick Negative (Negative); Leukocyte Esterase-Dipstick Negative /ul (Negative); Nitrite-Dipstick Negative (Negative); Occult Blood-Urine Negative /ul (Negative); Protein-Dipstick Negative (Negative); Specific Gravity, Urine 1.015 (1.002-1.030); Urine Bilirubin Dipstick Negative (Negative); Urine Urobilinogen Normal (Normal)
[2021-08-28 17:20] LABS: Color, Urine Yellow (Yellow); Urine Clarity Clear (Clear)
[2021-08-28 17:21] LABS: Anion Gap 3 (5-15); BUN 13 mg/dL (7-18); BUN/Creat Ratio 13.4 RATIO (10-20); Calcium,Total 9.2 mg/dL (8.5-10.1); Chloride 107 mmol/L (98-107); Creatinine, Serum 0.97 mg/dL (0.70-1.30); EST Glomerular Filtration Rate 102 mL/min (>60); Est Glom Filt Rate - Afr Amer 123 mL/min (>60); Estimated Creatinine Clearance 122.29 ml/min; Glucose 126 mg/dL (74-106); Potassium 3.5 mmol/L (3.5-5.1); Sodium Level 139 mmol/L (136-145)
[2021-08-28 17:22] LABS: Bacteria RARE /hpf (None Seen); Mucous, Urine RARE /hpf (<or=2+); Red Blood Cells-Urine 0-5 SEEN /hpf (0-5); Squamous Epithelial Cells - UA 0-5 SEEN /hpf (0-5); White Blood Cells 0-5 SEEN /hpf (0-5)
[2021-08-28 17:51] VITALS: PULSE 99; RESP 17; O2SAT 97
== END 2021-08-28 17:53 | disposition home or self-care (01) ==
PROVIDERS: Emergency Provider Emergency Medicine; Visit Provider Emergency Medicine
DX: R10.32 Left lower quadrant pain (principal); Z86.16 Personal history of COVID-19; K21.9 Gastro-esophageal reflux disease without esophagitis
CPT/HCPCS: 80048; 81001; 85025; 99283; A4216

== ENCOUNTER 2022-05-19 21:24 | Emergency (ER) | payer OTHER, SELFPAY ==
[2022-05-19 21:25] VITALS: BP 146/76; PULSE 102; RESP 16; RESP 18; TEMP 36.3; O2SAT 96; BMI 47.8
--- NOTE | 2022-05-19 23:04 | EX.ED.VIS.UR ---
HPI HPI - URI History of Present Illness Chief Complaint: Ear Problem Narrative Narrative: 22-year-old male who denies significant past medical history presents with a few days of right earache and tinnitus. He developed pain down the right side of his neck, and a sore throat. He denies any fevers or chills. No cough, but he has had nasal congestion. He does not get frequent ear infections. He does not smoke. No exacerbating or alleviating factors. His main concern is that he thinks he has an ear infection. Denies loss of hearing. ROS ROS ED ROS Narrative Constitutional: No fever, no chills. HEENT: No sore throat. Right-sided neck pain. No loss of vision. Nasal congestion and rhinorrhea. Right ear pain and ringing in ear a few days ago. Cardiovascular: No chest pain. No palpitations. No pedal edema. Respiratory: No cough, no shortness of breath. Abdominal: No abdominal pain. No nausea. No vomiting. Genitourinary: No dysuria. No hematuria. Musculoskeletal: No myalgias. No arthralgias. Neurologic: No headaches. No dizziness. No lightheadedness. Skin: No rash. No change in color. Psychiatric: No depression. No anxiety. [facility] Medical History Alcohol use COVID Gastric reflux Non-smoker Rash Home Medications NK 08/28/21 [History Last Taken Unknown] Allergy/AdvReac Type Severity Reaction Status Date / Time No Known Allergies Allergy Verified 08/28/21 16:17 Surgical History History of kidney surgery Social History Smoking Status: Never smoker EXAM Physical Exam Narrative Exam Narrative: Afebrile. Vital signs noted. HEENT: Normocephalic. Atraumatic. PERRL, EOMI. Neck soft and supple. No point tenderness or step off. Inspection of the right ear shows no pain with movement of tragus. No mastoid tenderness or erythema. There is a small amount of cerumen in the canal. No TM erythema, no bulging of the TM. Positive nasal congestion. Airway patent. No drooling or trismus. No pharyngeal erythema. No cervical lymphadenopathy. Centor score is 0. Cardiovascular: Regular rate and rhythm. No murmurs, rubs, or gallops appreciated. Respiratory: No tachypnea. Lungs clear to auscultation bilaterally. Gastrointestinal: Abdomen soft, nontender, with normoactive bowel sounds. No rebound or guarding. Neurological: Awake. Alert. Nonfocal, nonlateralizing. Skin: No rash. Normal color. No pallor. Musculoskeletal: No pedal edema. Full range of motion extremities. Const Vital Signs: 05/19/22 21:25 05/19/22 21:25 Temperature 97.3 F L 97.3 F L Temperature Source Temporal Temporal Pulse Rate 102 H 102 H Respiratory Rate 18 16 Blood Pressure 146/76 H 146/76 H Blood Pressure Mean 99 99 Pulse Ox 96 96 Oxygen Delivery Method Room Air Room Air MDM MDM MDM Narrative Medical decision making narrative: I do not feel antibiotics are indicated. His symptoms of only been a few days, he does not have a fever. I did offer to swab him for strep pharyngitis, but he states his throat is not extremely sore, and he declined. He was encouraged to use [id number] medications and nasal steroids. He will follow-up with a primary care provider. I feel he can be discharged safely home with follow-up. Return instructions to the emergency department were reviewed. Disposition is discharged home in stable condition. Discharge Plan Triage Chief Complaint: Ear Problem ED Provider: Nhan Ruiz Dx/Rx/DC Orders Clinical Impression: Right ear pain, Nasal congestion, Sore throat Instructions: Self-Care for Sore Throats, ED Earache Without Infection (Adult) Prescriptions: No Action NK Stand Alone Forms: ED Work / School Excuse Primary Care Provider: Care Physician,No Primary Referrals: Care Physician,No Primary [Primary Care Provider] - Activity Restrictions/Additional Instructions: Use Rhinocort AQ or Flonase nasal steroid [id number] as directed. Disposition Disposition: Home, Self Care
== END 2022-05-19 23:15 | disposition home or self-care (01) ==
PROVIDERS: Emergency Provider Emergency Medicine; Visit Provider Emergency Medicine
DX: J02.9 Acute pharyngitis, unspecified (principal); H92.01 Otalgia, right ear; H93.11 Tinnitus, right ear
CPT/HCPCS: 99282

== ENCOUNTER 2022-05-24 22:42 | Emergency (ER) | payer OTHER, SELFPAY ==
[2022-05-24 22:43] VITALS: BP 182/96; PULSE 107; RESP 16; TEMP 36.9; O2SAT 97; BMI 47.5
[2022-05-24] MEDS: dexAMETHasone 10 MG/ML Vial PO.IVFORM (23:30)
[2022-05-24] MEDS: Ibuprofen 600 MG Tablet PO (23:30)
--- NOTE | 2022-05-24 23:32 | EX.ED.VIS.UR ---
HPI HPI - URI History of Present Illness Chief Complaint: Sore Throat Narrative Narrative: 22-year-old male with sore throat, congestion, rhinorrhea. He was seen 5 days ago for similar symptoms. He states have not improved. He states has been using [id number] TheraFlu with minimal relief. He states he has not been taking any Tylenol or ibuprofen for his sore throat pain. He denies feeling any swelling in his throat. No difficulties breathing or swallowing. No fever or chills. He states he does not feel ill. ROS ROS ED Constitutional Constitutional ED: Denies chills, fever(s) or sweats Eyes Eyes: Denies blurry vision or change in vision ENT ENT ED: Reports rhinorrhea and sore throat; Denies ear pain Cardiovascular Cardiovascular: Denies chest pain, palpitations or racing heartbeat Respiratory/Chest Respiratory/Chest: Denies cough, dyspnea or sputum Gastrointestinal Gastrointestinal: Denies abdominal pain, constipation, diarrhea, nausea or vomiting Genitourinary Genitourinary ED: Denies dysuria, hematuria or urinary frequency Musculoskeletal Musculoskeletal: Denies arthralgias, myalgias or neck pain Integumentary Denies abscess, Abrasions or rash Neurologic Neurologic: Denies headache(s), paresthesias or weakness Psychiatric Psychiatric: Denies anxiety, depression, suicidal ideation or suicidal thoughts Endocrine Endocrinology: Denies polydipsia or polyuria [facility] Medical History Alcohol use COVID Gastric reflux Non-smoker Rash Home Medications NK 08/28/21 [History Last Taken Unknown] Allergy/AdvReac Type Severity Reaction Status Date / Time No Known Allergies Allergy Verified 05/24/22 22:45 Surgical History History of kidney surgery Social History Smoking Status: Never smoker EXAM Physical Exam Const Vital Signs: 05/24/22 22:43 Temperature 98.4 F Temperature Source Temporal Pulse Rate 107 H Respiratory Rate 16 Blood Pressure 182/96 H Blood Pressure Mean 124 Pulse Ox 97 Oxygen Delivery Method Room Air Positive well nourished General Appearance ED: NAD; Negative for pallor HEENT Reports moist mucous membranes normocephalic and atraumatic Throat: posterior oropharynx normal Eyes PERRL and EOMs intact bilaterally General Eye ED: Negative for pale conjunctiva or scleral icterus Neck no lymphadenopathy, supple and no meningeal signs Resp normal respiratory effort Auscultation: Negative for rales, rhonchi or wheezes Cardio Rate: tachycardic Rhythm: regular rhythm GI non-tender Neuro oriented x3 and CN's II-XII intact bilaterally Sensorium / Orientation: alert Psych mental status grossly normal Skin General Skin Exam: Negative for jaundice or pallor MDM MDM MDM Narrative Medical decision making narrative: Well-appearing 22-year-old male with sore throat. HEENT exam is unremarkable. Not consistent with a strep pharyngitis. Patient has not had any fever, chills. He does not feel ill. Patient has been taking [id number] medications but has not been taking ibuprofen and Tylenol. He is given 10 of Decadron here tonight. He was also given ibuprofen. Most likely this is a viral pharyngitis. Is been going on for greater than 5 days. There is no reason to test him for COVID or influenza as he is outside the treatment window for either and he is well-appearing. Patient counseled on alternating Tylenol and ibuprofen at home. Return precaution discussed. He is given outpatient follow-up. Impression: 1. Viral pharyngitis Discharge Plan Triage Chief Complaint: Sore Throat ED Provider: Ankit Mars Dx/Rx/DC Orders Instructions: ED Pharyngitis, Viral Prescriptions: No Action NK Primary Care Provider: Care Physician,No Primary Referrals: [facility] [Outside] - 3-5 Days Care Physician,No Primary [Primary Care Provider] - Disposition Disposition: Home, Self Care
== END 2022-05-24 23:33 | disposition home or self-care (01) ==
PROVIDERS: Emergency Provider Student in an Organized Health Care Education/Training Program; Visit Provider Student in an Organized Health Care Education/Training Program
DX: J02.8 Acute pharyngitis due to other specified organisms (principal)
CPT/HCPCS: 99283

== ENCOUNTER 2022-07-09 13:24 | Emergency (ER) | payer OTHER, SELFPAY ==
[2022-07-09 13:25] VITALS: BP 140/115; PULSE 61; RESP 18; TEMP 36; O2SAT 100; BMI 46.9
--- NOTE | 2022-07-09 13:47 | EX.ED.DYSGE1 ---
HPI <ARVIND Kendall - Last Filed: 07/09/22 18:02> History of Present Illness Chief Complaint: Wound Check Narrative Narrative: Patient presenting today with a ingrown toenail in his right big toe that he has had for 2 years. He states he decided to come in today because his suggested he be evaluated for it. He denies any worsening of his symptoms. He denies any injury to his toe. He has never had this evaluated by anybody as he does not have a PCP. PFSH <ARVIND Kendall - Last Filed: 07/09/22 18:02> [facility] Medical History Alcohol use COVID Gastric reflux Non-smoker Rash Home Medications cephalexin 500 mg capsule 500 mg PO Q6 5 days #20 CAPSULES 07/09/22 [Rx Last Taken Unknown] Allergy/AdvReac Type Severity Reaction Status Date / Time No Known Allergies Allergy Verified 07/09/22 13:27 Surgical History History of kidney surgery Social History Smoking Status: Never smoker ROS <ARVIND Kendall - Last Filed: 07/09/22 18:02> ROS ED Constitutional Constitutional ED: Denies chills or fever(s) Cardiovascular Cardiovascular: Denies chest pain Respiratory/Chest Respiratory/Chest: Denies cough or dyspnea Gastrointestinal Gastrointestinal: Denies abdominal pain, nausea or vomiting Musculoskeletal Musculoskeletal: Denies arthralgias or myalgias Integumentary Denies abscess, Abrasions or rash Neurologic Neurologic: Denies weakness Psychiatric Psychiatric: Denies anxiety or depression EXAM <ARVIND Kendall - Last Filed: 07/09/22 18:02> Physical Exam Const Vital Signs: 07/09/22 13:25 07/09/22 17:38 Temperature 96.8 F L Temperature Source Temporal Pulse Rate 61 62 Respiratory Rate 18 19 H Blood Pressure 140/115 H 132/82 H Blood Pressure Mean 123 Pulse Ox 100 100 Oxygen Delivery Method Room Air Positive well nourished, well developed and no apparent distress General Appearance ED: well developed HEENT Reports normocephalic and head/scalp atraumatic Mouth ED: Yes moist mucous membranes normal Eyes PERRL and EOMs intact bilaterally Neck full ROM and supple Chest Wall inspection of chest normal Resp normal respiratory effort and clear to auscultation bilaterally Cardio regular rate and regular rhythm GI soft to palpation, non-tender, non-distended and no masses Back/Spine normal ROM and normal to inspection Extremity full ROM Extremity Narrative: Right big toe has an ingrown toenail on the lateral aspect. Mild erythema surrounding the area without any edema or purulent discharge. Neuro oriented x3, CN's II-XII intact bilaterally, moves all extremities, no focal motor deficits and no sensory deficits noted Sensorium / Orientation: awake and alert Psych mental status grossly normal and thought process normal Skin no rashes or lesions noted and no wounds <Dr. Deondre Don MD - Last Filed: 07/09/22 17:14> Physical Exam Const Vital Signs: 07/09/22 13:25 07/09/22 17:38 Temperature 96.8 F L Temperature Source Temporal Pulse Rate 61 62 Respiratory Rate 18 19 H Blood Pressure 140/115 H 132/82 H Blood Pressure Mean 123 Pulse Ox 100 100 Oxygen Delivery Method Room Air MDM <ARVIND Kendall - Last Filed: 07/09/22 18:02> [facility] Narrative Medical decision making narrative: Presenting with a ingrown toenail to his right big toe that he has had for 2 years. He decided to come in today as his felt that he should come in and have this evaluated since its been going on for so long. He does not have a PCP. He is well-appearing and in no acute distress. Ingrown toenail was removed, see procedure note. Right as the toenail was being pulled off, patient did have a syncopal episode. He quickly regained consciousness. He was placed on the diagnostic cardiac sonographer and observed. On reexamination patient is feeling better and is stable. Syncope consistent with vasovagal syncope. He will be discharged home in stable condition and is comfortable with plan. I have given him a PCP to follow-up with for preventative care. He has been placed on Keflex. I have personally performed a face to face assessment of the patient and have reviewed the BRITNEY Note. I performed a substantive portion of the visit including all aspects of the following. My delong findings include: History is 22-year-old male with a left great ingrown toenail is infected. This has been going on for more than a year. Denies any other complaints. Exam is [exam normal except rift great toe ingrown nail medially. Red tender. No lymphangitic streaking. Mildly swollen.] Medical Decision Making [patient undergo a great toe digital block. We will resect underneath the nailbed and resect the third of the nail. Be placed on Keflex for 5 days. Outpatient follow-up as needed.] Other additions or changes: [None] <Dr. Deondre Don MD - Last Filed: 07/09/22 17:14> [facility] MDM Narrative Medical decision making narrative: I have personally performed a face to face assessment of the patient and have reviewed the BRITNEY Note. I performed a substantive portion of the visit including all aspects of the following. My delong findings include: History is 22-year-old male with a left great ingrown toenail is infected. This has been going on for more than a year. Denies any other complaints. Exam is [exam normal except rift great toe ingrown nail medially. Red tender. No lymphangitic streaking. Mildly swollen.] Medical Decision Making [patient undergo a great toe digital block. We will resect underneath the nailbed and resect the third of the nail. Be placed on Keflex for 5 days. Outpatient follow-up as needed.] Other additions or changes: [None] <Dr. Deondre Don MD - Last Filed: 07/09/22 17:14> Other Procedures Procedure(s): Right ingrown big toenail. Digital block. Undermine the nail. With scissors. Resected the medial third. Patient had a syncopal event during the nail resection. He is resting comfortably being monitored. Discharge Plan Triage Chief Complaint: Wound Check ED Midlevel Provider: Mray Jamison ED Provider: Deondre Don Dx/Rx/DC Orders Clinical Impression: Ingrown nail of great toe of right foot, Vasovagal syncope Instructions: ED Ingrown Toenail, Excised Prescriptions: New cephalexin 500 mg capsule 500 mg PO Q6 5 Days Qty: 20 0RF Primary Care Provider: Care Physician,No Primary Referrals: Melina Garcia MD [Med Staff - Quantitative Analyst] - As Needed Care Physician,No Primary [Primary Care Provider] - Activity Restrictions/Additional Instructions: Alternate Tylenol and ibuprofen for pain, take antibiotic as prescribed. I have referred you to a PCP. Disposition Disposition: Home, Self Care Discharge Date/Time: 07/09/22 17:39
--- NOTE | 2022-07-09 17:15 | ED.RN ---
PT HAD SYNCOPAL EPISODE DURING TOE NAIL EXTRACTION. PT PLACED ON THE VIDEO NEWS EDITOR. VS STABLE. BP 133/82, HR 67, RR, 16, 98% ROOM AIR. PT WAS PALE AND DIAPHORETIC. DR. RODRIGUEZ AT BEDSIDE. PT A+OX4, REPORTS HE IS FEELING BETTER. PT TO BE OBSERVED UNTIL CLEARED BY DR. RODRIGUEZ.
[2022-07-09 17:38] VITALS: BP 132/82; PULSE 62; RESP 19; O2SAT 100
[2022-07-09] MEDS: Lidocaine 1% (20 ml mdv) 20 ML Vial 5 ML INFILT (17:38)
== END 2022-07-09 17:39 | disposition home or self-care (01) ==
PROVIDERS: Emergency Provider Emergency Medicine; Visit Provider Emergency Medicine
DX: L60.0 Ingrowing nail (principal); R55 Syncope and collapse
CPT/HCPCS: 11750; 99283

== ENCOUNTER 2023-05-21 20:30 | Emergency (ER) | payer SELFPAY ==
[2023-05-21 20:31] VITALS: BP 128/72; PULSE 102; RESP 18; TEMP 36.8; O2SAT 97; BMI 46.4
[2023-05-21 22:36] VITALS: BP 129/69; PULSE 99; RESP 20; TEMP 39.4; O2SAT 98; O2SAT 99
--- NOTE | 2023-05-21 22:49 | EDS_ITS ---
HPI History of Present Illness Chief Complaint: Cough Informant: patient and spouse/S.O. Narrative Narrative: Myalgias since yesterday today headache fever cough nausea without vomiting. Sick contacts at work. No past medical history. No vaccination for COVID or influenza. Denies any allergies. PFSH PFS Medical History Alcohol use COVID Gastric reflux Non-smoker Rash Home Medications cephalexin 500 mg capsule 500 mg PO Q6 5 days #20 CAPSULES 07/09/22 [Rx Last Taken Unknown] ibuprofen 600 mg tablet 600 mg PO Q6H PRN PRN pain #20 TABLETS 05/22/23 [Rx Last Taken Unknown] ondansetron 4 mg disintegrating tablet 4 mg PO Q8H PRN PRN Nausea #10 tabs 05/22/23 [Rx Last Taken Unknown] Allergy/AdvReac Type Severity Reaction Status Date / Time No Known Allergies Allergy Verified 05/21/23 20:33 Surgical History History of kidney surgery Social History Smoking Status: Never smoker ROS ROS ED Constitutional Constitutional ED: Reports fever(s); Denies chills or sweats Eyes Eyes: Denies change in vision ENT ENT ED: Denies dysphagia or sore throat Cardiovascular Cardiovascular: Denies chest pain, leg edema, palpitations or racing heartbeat Respiratory/Chest Respiratory/Chest: Reports cough; Denies dyspnea or dyspnea on exertion Gastrointestinal Gastrointestinal: Reports nausea; Denies abdominal pain, diarrhea or vomiting Genitourinary Genitourinary ED: Denies dysuria, hematuria or urinary frequency Musculoskeletal Musculoskeletal: Denies back pain, extremity pain or neck pain Integumentary Denies rash or wounds Neurologic Neurologic: Reports headache(s); Denies paresthesias or weakness EXAM Physical Exam Const Vital Signs: 05/21/23 20:31 05/21/23 22:36 05/21/23 22:36 Temperature 98.2 F 102.9 F H Temperature Source Temporal Oral Pulse Rate 102 H 99 Respiratory Rate 18 20 H Respiratory Effort Normal Respiratory Depth Normal Respiratory Pattern Tachypnea Blood Pressure 128/72 H 129/69 H Blood Pressure Mean 90 89 Pulse Ox 97 99 Oxygen Delivery Method Room Air Room Air Room Air 03/05/24 00:07 Temperature 98.3 F Temperature Source Pulse Rate 101 H Respiratory Rate 18 Respiratory Effort Respiratory Depth Respiratory Pattern Blood Pressure 117/65 Blood Pressure Mean 82 Pulse Ox 97 Oxygen Delivery Method Positive well nourished and well developed Constitutional Narrative: Fatigue, nontoxic General Appearance ED: well developed and NAD HEENT Reports moist mucous membranes normocephalic and atraumatic Eyes PERRL, EOMs intact bilaterally and conjunctivae normal General Eye ED: Yes normal appearance of both eyes Neck no lymphadenopathy and supple Neck Narrative: No meningismus General: Negative for tenderness Chest Wall Chest: Negative for tenderness Resp normal respiratory effort and normal air movement Effort and Inspection: symmetric chest movement; Negative for respiratory distress Cardio regular rate, regular rhythm and no murmurs Peripheral Pulses: pulses 2+ throughout GI normal to inspection, nondistended, normoactive bowel sounds and non-tender Palpation: Negative for guarding or rebound tenderness present Back/Spine no CVA tenderness and no thoracic nor lumbar tenderness Extremity normal to inspection General Extremety ED: Negative for edema or tenderness General Extremity: Negative for edema Neuro oriented x3, CN's II-XII intact bilaterally and no sensory deficits noted Sensorium / Orientation: awake and alert Skin no rashes or lesions noted and no wounds MDM MDM MDM Narrative Medical decision making narrative: Interventions / MDM: Differential diagnosis: Viral syndrome Diagnosis considered but do not suspect: No clinical meningitis My EKG interpretation: N/A Imaging independently reviewed and interpreted by myself: N/A External documents reviewed: N/A Test considered but not ordered:N/A ED course: Nursing protocol sepsis nasal swabs. Results positive for influenza. COVID-negative. Spiked a fever in the ED. There is no clinical meningitis. No focal deficits. Soft compartments arms and legs. Ordered for Zofran Motrin. Re-evaluation: stable Disposition discussed with patient/family/significant other: Case discussed with consulting clinician: N/A This note was generated with [employer] dictation software. It may contain incorrect words, spelling, and punctuation that were not noted in checking the note before signing. Discharge Plan Triage Chief Complaint: Cough ED Provider: Hugh Martinez Dx/Rx/DC Orders Clinical Impression: Influenza A, Fever Instructions: ED Fever Control (Adult), ED Influenza (Adult) Prescriptions: New ibuprofen 600 mg tablet 600 mg PO Q6H PRN PRN (Reason: pain) Qty: 20 0RF ondansetron [ondansetron] 4 mg tablet,disintegrating 4 mg PO Q8H PRN PRN (Reason: Nausea) Qty: 10 0RF No Action cephalexin 500 mg capsule 500 mg PO Q6 5 Days Qty: 20 0RF Stand Alone Forms: ED Work / School Excuse Primary Care Provider: Care Physician,No Primary Referrals: Leslie Cast [Non-Staff] - 1 Week Care Physician,No Primary [Primary Care Provider] - Activity Restrictions/Additional Instructions: COVID-negative RSV negative. Influenza A+. Use medication as prescribed contin ue oral fluids for hydration. Disposition Disposition: Home, Self Care Discharge Date/Time: 05/22/23 00:11
--- OUTSIDE RECORDS SUMMARY | 2023-05-21 22:49 | XMS RPT_ITS | CCD ---
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 Unavailable Unavailable CEDILLO, DARIUS A Unavailable Unavailable RIDER, LAKE JDawson Unavailable Unavailable CEDILLO, DARIUS A Unavailable Unavailable MITCH PORTER Unavailable Unavailable CEDILLO, DARIUS A Unavailable Unavailable CRISTINA PATEL Unavailable Unavailable CEDILLO, DARIUS A Unavailable Unavailable CEDILLO, DARIUS A Unavailable Unavailable Problems Active Problems Problem Classification Problem Date Documented Da te Episodic/Chronic Unclassified (1 source) Unknown / UNK(Unknown) Onset: 09-23-2016 Past or Other Problems Problem Classification Problem Date Documented Da te Episodic/Chronic Unclassified (1 source) VOMITING//VOMITI NG Onset: 09-23-2016 Results Test Name Value Interpretation Reference Range Facil ity Encounters Encounter Date Encounter Type Care Provider Facility Start: 05-23-2017 End: 05-23-2017 Ambulatory DARIUS Jj [facility] Start: 03-29-2017 End: 03-30-2017 Ambulatory DARIUS Jj [facility] Start: 03-23-2017 End: 03-23-2017 Ambulatory DARIUS jJ [facility] Start: 03-17-2017 End: 03-17-2017 Emergency department patient visit MITCH PORTER Facility:B Start: 12-09-2016 Emergency department patient visit [facility] Facility[facility] Start: 11-17-2016 End: 11-17-2016 Emergency department patient visit [facility] Facility:[facility] Start: 09-23-2016 End: 09-23-2016 Emergency department patient visit CRISTINA PATEL Facility:[facility] Payers Date Payer Category Payer Unknown [id number] Summary Purpose Family History No Family History Records FoundNo Family History Records FoundNo Family History Records Found Advance Directives No Advanced Directives Records FoundNo Advanced Directives Records FoundNo Advanced Directives Records Found Additional Source Comments (unrecognized sect ion and content) No Status Records FoundNo Status Records FoundNo Status Records Found INFORMATION SOURCE (unrecogn ized section and content) DATE CREATED AUTHOR AUTHOR'S ORGANIZ ATION 09/11/2017 [place] [facility] [employer] [facility] ([place]) DATE CREATED AUTHOR AUTHOR'S ORGANIZ ATION 09/12/2017 [facility] FOR RECORDS PERTAINING TO PATIENTS WHO ARE OR HAVE BEEN ENROLLED IN A CHEMICAL DEPENDENCY/SUBSTANCEABUSE PROGRAM, SOME INFORMATION MAY BE OMITTED. This clinical summary was aggregated from multiple sources. Caution should be exercised in using it in the provision of clinical care. This summary normalizes information from multiple sources, and as a consequence, information in this document may materially change the coding, format and clinical context of patient data. In addition, data may be omitted in some cases. CLINICAL DECISIONS SHOULD BE BASED ON THE PRIMARY CLINICAL RECORDS. [facility] [employer] [facility]. provides no warranty or guarantee of the accuracy or completeness of information in this document.
[2023-05-21] MEDS: Ibuprofen 600 MG Tablet PO (22:52)
[2023-05-21] MEDS: Ondansetron ODT 4 MG Tablet PO (22:53)
[2023-05-22 00:07] VITALS: BP 117/65; PULSE 101; RESP 18; TEMP 36.8; O2SAT 97
== END 2023-05-22 00:11 | disposition home or self-care (01) ==
PROVIDERS: Emergency Provider Emergency Medicine; Visit Provider Emergency Medicine
DX: J10.1 Influenza due to other identified influenza virus with other respiratory manifestations (principal); R51.9 Headache, unspecified; K21.9 Gastro-esophageal reflux disease without esophagitis; R50.9 Fever, unspecified
CPT/HCPCS: 87631; 99284

== ENCOUNTER 2023-05-23 14:42 | Emergency (ER) | payer SELFPAY ==
[2023-05-23 14:43] VITALS: BP 127/84; PULSE 86; RESP 18; TEMP 36.2; O2SAT 94; BMI 45.0
--- NOTE | 2023-05-23 15:15 | EX.ED.VIS.UR ---
HPI HPI - URI History of Present Illness Chief Complaint: Dizziness Narrative Narrative: 23-year-old male who denies significant past medical history presents with his because of dizziness and right earache. Of note, he was seen in the emergency department 2 days ago and diagnosed with influenza. He states that his earache and dizziness began after he was discharged. His fevers have resolved. He states had vertigo in the past and this feels similar to this. Complains of right ear pain radiating down his right neck. He states he is taking the medicine he was prescribed in the form of ibuprofen and Zofran. No exacerbating or alleviating factors. No nausea or vomiting. ROS ROS ED ROS Narrative Constitutional: No fever, no chills. HEENT: No sore throat. No neck pain. No loss of vision. No rhinorrhea. Positive right earache radiating down Cardiovascular: No chest pain. No palpitations. No pedal edema. Respiratory: No cough, no shortness of breath. Abdominal: No abdominal pain. No nausea. No vomiting. Genitourinary: No dysuria. No hematuria. Musculoskeletal: No myalgias. No arthralgias. Neurologic: No headaches. Positive dizziness. No lightheadedness. Skin: No rash. No change in color. Psychiatric: No depression. No anxiety. PFSH PFS Medical History Alcohol use COVID Gastric reflux Non-smoker Rash Home Medications cephalexin 500 mg capsule 500 mg PO Q6 5 days #20 CAPSULES 07/09/22 [Rx Last Taken Unknown] ibuprofen 600 mg tablet 600 mg PO Q6H PRN PRN pain #20 TABLETS 05/22/23 [Rx Last Taken Unknown] ondansetron 4 mg disintegrating tablet 4 mg PO Q8H PRN PRN Nausea #10 tabs 05/22/23 [Rx Last Taken Unknown] azithromycin 500 mg tablet 500 mg PO DAILY 3 days #3 tabs 05/23/23 [Rx Last Taken Unknown] meclizine 25 mg tablet 25 mg PO TID PRN dizziness #12 tabs 05/23/23 [Rx Last Taken Unknown] Allergy/AdvReac Type Severity Reaction Status Date / Time No Known Allergies Allergy Verified 05/23/23 14:42 Surgical History History of kidney surgery Social History Smoking Status: Never smoker EXAM Physical Exam Narrative Exam Narrative: Afebrile. Vital signs noted. HEENT: Normocephalic. Atraumatic. PERRL, EOMI. Neck soft and supple. No point tenderness or step off. Right TM with mild erythema, no mastoid tenderness or erythema. No meningismus. Cardiovascular: Regular rate and rhythm. No murmurs, rubs, or gallops appreciated. Respiratory: No tachypnea. Lungs clear to auscultation bilaterally. Gastrointestinal: Abdomen soft, nontender, with normoactive bowel sounds. No rebound or guarding. Neurological: Awake. Alert. Nonfocal, nonlateralizing. Playing a game on telephone during examination. Skin: No rash. Normal color. No pallor. Musculoskeletal: No pedal edema. Full range of motion extremities. Const Vital Signs: 05/23/23 14:43 05/23/23 15:39 Temperature 97.1 F L 98.8 F Temperature Source Temporal Pulse Rate 86 74 Respiratory Rate 18 16 Blood Pressure 127/84 H 127/77 H Blood Pressure Mean 98 93 Pulse Ox 94 100 Oxygen Delivery Method Room Air MDM MDM MDM Narrative Medical decision making narrative: In the differential diagnosis is viral syndrome versus otitis media from viral syndrome versus bacterial infection. For his dizziness he may have positional vertigo versus inner ear problem. I reviewed the patient's prior records. He had spiked a fever while in the emergency department and was diagnosed with influenza A. While I think he might be having more of a viral syndrome and that his ear infection would be from his influenza, he was written a prescription for an azithromycin Z-Drew/Tri-Drew. He was also written for meclizine. I do not feel that he needs IV fluids, nor do I feel that he requires any laboratory tests or imaging. He was referred back to the same primary care provider that he had been referred to 2 days ago. At this point in time, I feel he can be discharged to follow-up as an outpatient. Return instructions to the emergency department were reviewed. Disposition is discharged home in stable condition. Discharge Plan Triage Chief Complaint: Dizziness Other Complaint: Ear Problem ED Provider: Nhan Ruiz Dx/Rx/DC Orders Clinical Impression: Influenza A, Dizziness, Otitis media Instructions: ED Influenza (Adult), ED Otitis Media Adult, ED Vertigo, Unspecified, ED Viral Syndrome (Adult) Prescriptions: New azithromycin 500 mg tablet 500 mg PO DAILY 3 Days Qty: 3 0RF meclizine 25 mg tablet 25 mg PO TID PRN (Reason: dizziness) Qty: 12 0RF No Action cephalexin 500 mg capsule 500 mg PO Q6 5 Days Qty: 20 0RF ibuprofen 600 mg tablet 600 mg PO Q6H PRN PRN (Reason: pain) Qty: 20 0RF ondansetron [ondansetron] 4 mg tablet,disintegrating 4 mg PO Q8H PRN PRN (Reason: Nausea) Qty: 10 0RF Primary Care Provider: Care Physician,No Primary Referrals: Leslie Cast [Non-Staff] - 1 Week if not improving Care Physician,No Primary [Primary Care Provider] - Disposition Disposition: Home, Self Care Discharge Date/Time: 05/23/23 15:40
[2023-05-23 15:39] VITALS: BP 127/77; PULSE 74; RESP 16; TEMP 37.1; O2SAT 100
== END 2023-05-23 15:40 | disposition home or self-care (01) ==
PROVIDERS: Emergency Provider Emergency Medicine; Visit Provider Emergency Medicine
DX: J10.1 Influenza due to other identified influenza virus with other respiratory manifestations (principal); R42 Dizziness and giddiness; H66.91 Otitis media, unspecified, right ear; K21.9 Gastro-esophageal reflux disease without esophagitis
CPT/HCPCS: 99282

== ENCOUNTER 2023-08-04 22:34 | Emergency (ER) | payer OTHER, SELFPAY ==
[2023-08-04 22:34] VITALS: BP 162/88; PULSE 88; RESP 18; TEMP 36.2; O2SAT 96; BMI 45.7
--- NOTE | 2023-08-04 23:03 | EDS_ITS ---
HPI History of Present Illness Chief Complaint: Ear Problem Informant: patient Narrative Narrative: Patient is a 23-year-old male with no significant past medical history. He states he has waxy ears so he uses a wax removal tool. He states he is done this is normal but over the last few days has noticed that his left ear is becoming swollen and painful. She denies any discharge from the ear and he denies any fevers or chills but with concern for developing infection he presents for evaluation [facility] Medical History Alcohol use COVID Gastric reflux Non-smoker Rash Home Medications ?Medication ?Instructions ?Recorded ?Last Taken ?Type NK 08/04/23 Unknown History amoxicillin 875 mg-potassium 1 tab PO BID 7 days #14 tabs 08/04/23 Unknown Rx clavulanate 125 mg tablet dxyuscab-[id number]-[id number] 3.3 5 drp LEFT EAR 4X/DAY 7 days #10 mL 08/04/23 Unknown Rx mg-3 mg-10 mg-0.5 mg/mL ear drops,susp (Cortisporin-TC) Allergy/AdvReac Type Severity Reaction Status Date / Time No Known Allergies Allergy Verified 08/04/23 22:35 Surgical History History of kidney surgery Social History Smoking Status: Never smoker ROS ROS ED Constitutional Constitutional ED: Denies chills or fever(s) ENT ENT ED: Reports ear pain Cardiovascular Cardiovascular: Denies chest pain Respiratory/Chest Respiratory/Chest: Denies cough or dyspnea Gastrointestinal Gastrointestinal: Denies abdominal pain, diarrhea, nausea or vomiting Genitourinary Genitourinary ED: Denies dysuria Musculoskeletal Musculoskeletal: Denies myalgias or neck pain Integumentary Denies rash Neurologic Neurologic: Denies headache(s) Hematologic/Lymphatic Hematologic/Lymphatic: Denies easy bleeding or easy bruising EXAM Physical Exam Const Vital Signs: 08/04/23 22:34 Temperature 97.1 F L Temperature Source Temporal Pulse Rate 88 Respiratory Rate 18 Blood Pressure 162/88 H Blood Pressure Mean 112 Pulse Ox 96 Oxygen Delivery Method Room Air Positive well nourished, well developed and obese General Appearance ED: well developed; Negative for pallor Nutritional Appearance: obese HEENT HEENT Narrative: Right canal and TM are normal. The left canal is erythematous and swollen with scant amount of discharge consistent with otitis externa. There is also pain with external manipulation of the left ear. There is wax buildup over top of the tympanic membrane therefore cannot be visualized for potential otitis media. The patient does not have pain with palpation over top either mastoid going against mastoiditis. Eyes PERRL and EOMs intact bilaterally Neck supple Neck Narrative: No nuchal rigidity or meningeal signs Resp normal respiratory effort and clear to auscultation bilaterally Cardio regular rate and regular rhythm Extremity normal to inspection Neuro oriented x3, CN's II-XII intact bilaterally and no sensory deficits noted Sensorium / Orientation: alert Motor Exam: strength 5/5 throughout Psych mental status grossly normal Skin no rashes or lesions noted, no wounds and skin turgor normal General Skin Exam: Negative for jaundice or pallor MDM MDM MDM Narrative Medical decision making narrative: Patient presented to the ER hypertensive otherwise with stable vitals. Differential diagnosis is for otitis externa versus otitis media versus cerumen impaction versus mastoiditis. Physical exam did not show any derangement to the outer ear going against malignant otitis externa. Patient does not have any type of pain on palpation over top either mastoid going against mastoiditis. The right tympanic membrane is normal but the left cannot be visualized secondary to cerumen. However the canal of the left ear is swollen and erythematous with increased pain with manipulation consistent with otitis externa. At this time as the TM cannot be visualized I will also cover him with oral antibiotic however he does not have signs of systemic infection such as mastoiditis or malignant otitis externa he does not need placed in the hospital and is otherwise safe for discharge History & Record Review Discussion w/independent historian: Patient Discharge Plan Triage Chief Complaint: Ear Problem ED Provider: Alberto Tomlinson Dx/Rx/DC Orders Clinical Impression: Left otitis externa Instructions: ED External Ear Infection (Adult) Prescriptions: New amoxicillin-pot clavulanate 875-125 mg tablet 1 tab PO BID 7 Days Qty: 14 0RF Cortisporin-TC 3.3-3-10-0.5 mg/mL drops,suspension 5 drp LEFT EAR 4X/DAY 7 Days Qty: 10 0RF No Action NK Primary Care Provider: Care Physician,No Primary Referrals: Dominik Corey MD [Med Staff - Courtesy Staff] - Care Physician,No Primary [Primary Care Provider] - Activity Restrictions/Additional Instructions: Please take the prescribed antibiotics as directed to resolve your infection. Do not use your ear cleaning device while you are taking the antibiotics. Follow-up with ear nose and throat for repeat evaluation and return to the ER should you have any further concerns Print Language: [place] Disposition Disposition: Home, Self Care Discharge Date/Time: 08/04/23 23:33
[2023-08-04 23:27] VITALS: BP 131/72; PULSE 60; RESP 18; TEMP 36.1; O2SAT 95
[2023-08-04] MEDS: Amox/Clavulanate 875 MG Tablet PO (23:30)
[2023-08-04] MEDS: Neomycin/Polymyxin/Dexameth 5ML OPTH.BTL 4 DRP OTIC (23:30)
== END 2023-08-04 23:33 | disposition home or self-care (01) ==
LOC: ED 23:12
PROVIDERS: Emergency Provider Emergency Medicine; Visit Provider Emergency Medicine
DX: H60.92 Unspecified otitis externa, left ear (principal); K21.9 Gastro-esophageal reflux disease without esophagitis; E66.9 Obesity, unspecified
CPT/HCPCS: 99282

== ENCOUNTER 2024-12-17 01:02 | Emergency (ER) | payer OTHER, SELFPAY ==
[2024-12-17 01:02] VITALS: BP 182/77; PULSE 60; RESP 18; TEMP 37; O2SAT 99; BMI 47.2
--- NOTE | 2024-12-17 02:37 | EX.ED.DYSGE1 ---
HPI History of Present Illness Chief Complaint: Dental Informant: patient Narrative Narrative: Patient is a 24-year-old male who reports no clinically significant past medical history. He states he has been having dental pain which he states was from his wisdom teeth for the last month or so. However in the last 1 to 2 days has been having increasing pain to the right upper jaw region. He states has been no recent trauma and he denies any fevers or chills. He denies any sore throat difficulty breathing or swallowing. He states the pain is more intense than it has been and is not responding to [id number] medications and secondary to this he presents for evaluation. [facility] Medical History Alcohol use COVID Gastric reflux Non-smoker Rash Home Medications ?Medication ?Instructions ?Recorded ?Last Taken ?Type clindamycin HCl 300 mg capsule 300 mg PO 4X/DAY 10 days #40 caps 12/17/24 Unknown Rx (Cleocin HCl) oxycodone-acetaminophen 5 mg-325 1 tab PO Q6H PRN pain 3 days #12 12/17/24 Unknown Rx mg tablet (Percocet) tabs Allergy/AdvReac Type Severity Reaction Status Date / Time No Known Allergies Allergy Verified 12/17/24 01:02 Surgical History History of kidney surgery Social History Smoking Status: Never smoker ROS ROS ED Constitutional Constitutional ED: Denies chills or fever(s) ENT ENT ED: Reports other Details: Positive dental pain ; Denies rhinorrhea or sore throat Cardiovascular Cardiovascular: Denies chest pain Respiratory/Chest Respiratory/Chest: Denies cough or dyspnea Gastrointestinal Gastrointestinal: Denies abdominal pain, diarrhea, nausea or vomiting Musculoskeletal Musculoskeletal: Denies myalgias or neck pain Integumentary Denies rash Neurologic Neurologic: Denies headache(s) Hematologic/Lymphatic Hematologic/Lymphatic: Denies easy bleeding or easy bruising Allergic/Immunologic Allergic/Immunologic ED: Denies mouth swelling or tongue swelling EXAM Physical Exam Const Vital Signs: 12/17/24 01:02 Temperature 98.6 F Temperature Source Oral Pulse Rate 60 Respiratory Rate 18 Blood Pressure 182/77 H Blood Pressure Mean 112 Pulse Ox 99 Oxygen Delivery Method Room Air Positive well nourished and well developed General Appearance ED: well developed; Negative for pallor HEENT Reports moist mucous membranes HEENT Narrative: Normocephalic atraumatic No signs of ANUG Patient has dental caries noted in the right upper jaw without obvious sign of dental abscess No tongue or lip swelling no oral lesions no airway edema or compromise Eyes PERRL and EOMs intact bilaterally General Eye ED: Negative for scleral icterus Neck supple Neck Narrative: No brawny edema in the submental space to suggest Harpal's angina Resp normal respiratory effort and clear to auscultation bilaterally Cardio regular rate and regular rhythm Extremity normal to inspection Neuro oriented x3, CN's II-XII intact bilaterally and no sensory deficits noted Sensorium / Orientation: alert Motor Exam: strength 5/5 throughout Psych mental status grossly normal Skin no rashes or lesions noted and no wounds Skin Narrative: No overlying erythema or warmth or induration or fluctuance to suggest cellulitis or abscess General Skin Exam: Negative for jaundice or pallor MDM MDM MDM Narrative Medical decision making narrative: Patient arrived to ER hypertensive but otherwise with stable vitals. He reported dental pain for the last month or so which he related to his wisdom teeth which has now increased. There is no report or signs of trauma going against dental fracture or jaw fracture. He does not have findings to suggest Harpal's angina or ANUG. Clinically he has changes of dental caries in the right upper jaw with reported increased pain this is consistent with developing dental infection. At this time as he does not have a abscess there is no need for incision and drainage. Without signs of systemic infection or airway compromise there is no need for CT scan or laboratory studies. The patient was offered a dental block for pain control but refused at this time. As there is high likelihood he has developed a secondary dental infection from his dental caries based on his history and exam he placed on antibiotics and is otherwise safe for discharge. History & Record Review Discussion w/independent historian: Patient Discharge Plan Triage Chief Complaint: Dental ED Provider: Alberto Tomlinson Dx/Rx/DC Orders Clinical Impression: Pain, dental, Dental caries Instructions: Dental Abscess, ED Dental Pain Prescriptions: New oxycodone-acetaminophen [Percocet] 5-325 mg tablet 1 tab PO Q6H PRN (Reason: pain) 3 Days Qty: 12 0RF clindamycin HCl [Cleocin HCl] 300 mg capsule 300 mg PO 4X/DAY 10 Days Qty: 40 0RF Stand Alone Forms: ED Work / School Excuse Primary Care Provider: Care Physician,No Primary Referrals: Care Physician,No Primary [Primary Care Provider, Medical] Activity Restrictions/Additional Instructions: Please take the antibiotic as directed as I feel your dental pain is related to developing dental infection. It will take on average 2 to 3 days for symptom improvement. Follow-up with your dentist for repeat evaluation and return to the ER should give any further concern Print Language: Croatian Disposition Disposition: Home, Self Care Discharge Date/Time: 12/17/24 02:51
[2024-12-17 02:50] VITALS: BP 142/62; PULSE 88; RESP 18; TEMP 36.6; O2SAT 99
== END 2024-12-17 02:51 | disposition home or self-care (01) ==
LOC: ED 02:43
PROVIDERS: Emergency Provider Emergency Medicine; Visit Provider Emergency Medicine
DX: K02.9 Dental caries, unspecified (principal); K08.89 Other specified disorders of teeth and supporting structures
CPT/HCPCS: 99283

== ENCOUNTER 2025-03-04 19:54 | Emergency (ER) | payer OTHER, SELFPAY ==
[2025-03-04 19:56] VITALS: BP 138/86; PULSE 79; RESP 18; TEMP 36.9; O2SAT 97; BMI 46.5
--- OUTSIDE RECORDS SUMMARY | 2025-03-04 21:38 | XMS RPT_ITS | CCD ---
Author Organization [facility] Care Team Providers Care Bi Specialist Name Role Phone CEDILLO, DARIUS A Unavailable Unavailable REFERRED, SELF Unavailable Unavailable CEDILLO, DARIUS A Unavailable Unavailable ESTEFANY, ROQUE Unavailable Unavailable CEDILLO, DARIUS A Unavailable Unavailable CEDILLO, DARIUS A Unavailable Unavailable CEDILLO, DARIUS A Unavailable Unavailable ESTEFANY, ROQUE Unavailable Unavailable ESTEFANY, ROQUE Unavailable Unavailable CEDILLO, DARIUS A Unavailable Unavailable CEDILLO, DARIUS A Unavailable Unavailable REFERRED, SELF Unavailable Unavailable [place] Unavailable Unavailable CEDILLO, DARIUS A Unavailable Unavailable [place] JIMENEZ Unavailable Unavailable CEDILLO, DARIUS A Unavailable Unavailable MITCH PORTER Unavailable Unavailable CEDILLO, DARIUS A Unavailable Unavailable CRISTINA PATEL Unavailable Unavailable CEDILLO, DARIUS A Unavailable Unavailable CEDILLO, DARIUS A Unavailable Unavailable Dr. Jez Rosales Primary Care Provider Dr. Joshua Tafoya Attending Provider [phone] Dr. Yuri Salazar Referring Provider [phone] [facility] Care Physician, No Primary Primary Care Physicia n Unavailable Dr. Alberto Tomlinson DO Emergency Department Physic shira Alberto Tomlinson Attending [facility] Care Physician, No Primary Primary Care Unava ilable Medications Current Medications Medication Drug Class(es) Dates Sig (Normalized) Sig (Original) acetaminophen 325 mg / oxyCODONE hydrochloride 5 mg oral tablet (3 sources) Opioid Agonist Start: 12-17-2024 take 1 tablet by mouth every six hours as needed for pain Start: 06-15-2021 take 1 tablet by fior th every six hours Oxycodone-Acetaminophen Active 1 TABLET PO EVERY 6 HOURS 05 10June 15, 2021 7:31am ciprofloxacin 500 mg oral tablet (2 sources) Quinolone Antimicrobial Start: 06-15-2021 take 1 tablet by mouth twice daily Ciprofloxacin Hcl (Cipro) 500 mg tablet Active 500 MG PO TWICE A DAY June 15, 2021 7:32am clindamycin 300 mg oral capsule (1 source) Lincosamide Antibacterial Start: 12-17-2024 take 1 capsule by mouth four times daily docusate sodium 100 mg oral capsule (2 sources) Start: 06-15-2021 take 1 capsule by mouth twice daily Docusate Sodium (Colace) 100 mg capsule Active 100 MG PO TWICE A DAY June 15, 2021 7:32am Completed/Discontinued Medications Medication Drug Class(es) Dates Sig (Normalized) Sig (Original) amoxicillin 875 mg / clavulanate 125 mg oral tablet (1 source) Penicillin-class Antibacterial Start: 08-04-2023 End: 12-17-2024 Amoxicillin-Pot Clavulanate 875-125 mg tablet Discontinued 1 {tbl} PO TWICE A DAY 14 7 0 August 04, 2023 12:00am December 17, 2024 1:03am azithromycin 500 mg oral tablet (2 sources) Macrolide Antimicrobial Start: 05-23-2023 End: 08-04-2023 take 1 tablet by mouth once daily Azithromycin 500 mg tablet Discontinued 500 mg PO DAILY 3 3 0 May 23, 2023 1:00am August 04, 2023 10:36pm cephalexin 500 mg oral capsule (4 sources) Cephalosporin Antibacterial Start: 07-09-2022 End: 08-04-2023 take 1 capsule by mouth every six hours Cephalexin 500 mg capsule Discontinued 500 mg PO EVERY 6 HOURS 20 5 0 July 09, 2022 12:00am August 04, 2023 10:36pm colistin 3 mg/ml / hydrocortisone 10 mg/ml / neomycin 3.3 mg/ml / thonzonium bromide 0.5 mg/ml otic suspension (1 source) Aminoglycoside Antibacterial, Corticosteroid Start: 08-04-2023 End: 12-17-2024 Apisxmbf-Tqphaz-R c-Thonzonium (Cortisporin-Tc) 3.3-3-10-0.5 mg/mL drops,suspension Discontinued 5 NMA LEFT EAR 4 TIMES DAILY 10 7 August 04, 2023 12:00am December 17, 2024 1:03am ibuprofen 600 mg oral tablet (3 sources) Nonsteroidal Anti-inflammatory Drug Start: 05-22-2023 End: 08-04-2023 take 1 tablet by mouth every six hours as needed for pain Ibuprofen 600 mg tablet Discontinued 600 mg PO EVERY 6 HOURS NEEDED as needed for pain May 22, 2023 1:00am August 04, 2023 10:36pm meclizine hydrochloride 25 mg oral tablet (2 sources) Antiemetic Start: 05-23-2023 End: 08-04-2023 take 1 tablet by mouth three times daily as needed for dizziness Meclizine 25 mg tablet Discontinued 25 mg PO THREE TIMES A DAY as needed for dizziness 12 May 23, 2023 1:00am August 04, 2023 10:36pm ondansetron 4 mg disintegrating oral tablet (3 sources) Serotonin-3 Receptor Antagonist Start: 05-22-2023 End: 08-04-2023 take 1 tablet by mouth every eight hours as needed for nausea Ondansetron 4 mg tablet,disintegra ting Discontinued 4 mg PO EVERY 8 HOURS NEEDED as needed for Nausea May 22, 2023 1:00am August 04, 2023 10:36pm Problems Active Problems Problem Classification Problem Date Documented Date Episodic/Chronic Abdominal pain (16 sources) Flank pain; Translations: [Unspecified abdominal pain] 04-30-2021 Episodic Conditions associated with dizziness or vertigo (11 sources) Vertigo; Translations: [Dizziness and giddiness] 11-01-2019 Episodic Disorders of teeth and jaw (3 sources) Dental caries; Translations: [Dental caries, unspecified] Onset: 12-29-2024 12-17-2024 Episodic Fever of unknown origin (3 sources) Fever; Translations: [Fever, unspecified] 05-22-2023 Episodic Influenza (3 sources) Influenza due to Influenza A virus; Translations: [Influenza due to other identified influenza virus with other respiratory manifestations] 05-22-2023 Episodic Open wounds of extremities (9 sources) Laceration of finger; Translations: [Laceration without foreign body of unspecified finger without damage to nail, initial encounter] 05-24-2021 Episodic Other diseases of kidney and ureters (9 sources) Obstruction of pelviureteric junction; Translations: [Crossing vessel and stricture of ureter without hydronephrosis] 06-15-2021 Episodic Other ear and sense organ disorders (1 source) Otitis externa of left ear; Translations: [Unspecified otitis externa, left ear] 08-12-2023 Chronic Other ear and sense organ disorders (6 sources) Otalgia, right ear; Translations: [Right ear pain] 05-19-2022 Episodic Other nutritional; endocrine; and metabolic disorders (8 sources) Body mass index 40+ - severely obese; Translations: [Morbid (severe) obesity due to excess calories] 08-02-2021 Chronic Other skin disorders (4 sources) Ingrowing great toenail; Translations: [Ingrowing nail] 07-09-2022 Episodic Other upper respiratory disease (6 sources) Nasal congestion; Translations: [Nasal congestion] 05-19-2022 Episodic Other upper respiratory infections (6 sources) Sore throat symptom; Translations: [Acute pharyngitis, unspecified] 05-19-2022 Episodic Otitis media and related conditions (2 sources) Otitis media; Translations: [Otitis media, unspecified, unspecified ear] 05-23-2023 Episodic Syncope (3 sources) Vasovagal syncope; Translations: [Syncope and collapse] 07-17-2022 Episodic Unclassified (1 source) Unknown / UNK(Unknown) Onset: 09-23-2016 Viral infection (17 sources) Viral disease; Translations: [Viral infection, unspecified] 07-25-2021 Episodic Past or Other Problems Problem Classification Problem Date Documented Da te Episodic/Chronic Unclassified (1 source) VOMITING//VOMITI NG Onset: 09-23-2016 Results Test Name Value Interpretation Reference Range Facility Emergency Department Summary on 12-17-2024 Emergency Department Summary [facility] [address] [place] [address] Emergency Department Summary 12/17/24 MR#: [id number] Acct: [id number] Name: OSMIN HARRINGTON Rep #: [id number] : 2000 24 From: Alberto Tomlinson DO PCP: Care Physician,No Primary Status:DEP ER Location: ED HPI History of Present Illness Chief Complaint: Dental Informant: patient Narrative Narrative: Patient is a 24-year-old male who reports no clinically significant past medical history. He states he has been having dental pain which he states was from his wisdom teeth for the last month or so. However in the last 1 to 2 days has been having increasing pain to the right upper jaw region. He states has been no recent trauma and he denies any fevers or chills. He denies any sore throat difficulty breathing or swallowing. He states the pain is more intense than it has been and is not responding to jvxm-bam-biifhur medications and secondary to this he presents for evaluation. [facility] Medical History Alcohol use COVID Gastric reflux Non-smoker Rash Home Medications ???Medication ???Instructions ???Recorded ???Last Taken ???Type clindamycin HCl 300 mg capsule 300 mg PO 4X/DAY 10 days #40 caps 12/17/24 Unknown Rx (Cleocin HCl) oxycodone-acetaminop hen 5 mg-325 1 tab PO Q6H PRN pain 3 days #12 1 Unknown Rx mg tablet (Percocet) tabs Allergy/AdvReac Type Severity Reaction Status Date / Time No Known Allergies Allergy Verified 12/17/24 01:02 Surgical History History of kidney surgery Social History Smoking Status: Never smoker ROS ROS ED Constitutional Constitutional ED: Denies chills or fever(s) ENT ENT ED: Reports other Details: Positive dental pain ; Denies rhinorrhea or sore throat Cardiovascular Cardiovascular: Denies chest pain Respiratory/Chest Respiratory/Chest: Denies cough or dyspnea Gastrointestinal Gastrointestinal: Denies abdominal pain, diarrhea, nausea or vomiting Musculoskeletal Musculoskeletal: Denies myalgias or neck pain Integumentary Denies rash Neurologic Neurologic: Denies headache(s) Hematologic/Lymphati c Hematologic/Lymphati c: Denies easy bleeding or easy bruising Allergic/Immunologic Allergic/Immunologic ED: Denies mouth swelling or tongue swelling EXAM Physical Exam Const Vital Signs: 12/17/24 01:02 Temperature 98.6 F Temperature Source Oral Pulse Rate 60 Respiratory Rate 18 Blood Pressure 182/77 H Blood Pressure Mean 112 Pulse Ox 99 Oxygen Delivery Method Room Air Positive well nourished and well developed General Appearance ED: well developed; Negative for pallor HEENT Reports moist mucous membranes HEENT Narrative: Normocephalic atraumatic No signs of ANUG Patient has dental caries noted in the right upper jaw without obvious sign of dental abscess No tongue or lip swelling no oral lesions no airway edema or compromise Eyes PERRL and EOMs intact bilaterally General Eye ED: Negative for scleral icterus Neck supple Neck Narrative: No brawny edema in the submental space to suggest Harpal's angina Resp normal respiratory effort and clear to auscultation bilaterally Cardio regular rate and regular rhythm Extremity normal to inspection Neuro oriented x3, CN's II-XII intact bilaterally and no sensory deficits noted Sensorium / Orientation: alert Motor Exam: strength 5/5 throughout Psych mental status grossly normal Skin no rashes or lesions noted and no wounds Skin Narrative: No overlying erythema or warmth or induration or fluctuance to suggest cellulitis or abscess General Skin Exam: Negative for jaundice or pallor MDM MDM MDM Narrative Medical decision making narrative: Patient arrived to ER hypertensive but otherwise with stable vitals. He reported dental pain for the last month or so which he related to his wisdom teeth which has now increased. There is no report or signs of trauma going against dental fracture or jaw fracture. He does not have findings to suggest Harpal's angina or ANUG. Clinically he has changes of dental caries in the right upper jaw with reported increased pain this is consistent with developing dental infection. At this time as he does not have a abscess there is no need for incision and drainage. Without signs of systemic infection or airway compromise there is no need for CT scan or laboratory studies. The patient was offered a dental block for pain control but refused at this time. As there is high likelihood he has developed a secondary dental infection from his dental caries based on his history and exam he placed on antibiotics and is othe (more content not included)... Normal [facility] Laboratory - Microbiology an d Antimicrobial susceptibilityOrdered By: Hugh Martinez on 05-21-2023 SARS-CoV-2 (COVID-19) RNA FRANSICO+probe Ql (Unsp spec) Influenzae A [facility] Absolute lymphocyte counton 08-28-2021 Lymphocytes Auto (Unsp spec) [#/Vol] 2.35 10*3/uL 0.83-4.51 [facility] Work Phone: Basophil percentageon 2021 Basophils/100 WBC (Bld) 0.7 % 0-1 [facility] Work Phone: Chloride [Moles/Vol] 107 mmol/L 98-107 [facility]: Eosinophils/100 WBC (Bld) 6.2 % 0-5 [facility] Work Phone: Glucose [Mass/Vol] 126 mg/dL 74-106 [facility] Work Phone: Comment on above: Fasting Glucose resu lt greater than or equal to 126 mg/dL suggests DIABETES MELLITUS per A.D.A. criteria. Neutrophils (Bld) [#/Vol] 3.0 10*3/uL 2.0-7.7 [facility] Work Phone: Neutrophils/100 WBC (Bld) 48.5 % 47-70 [facility] Work Phone: Potassium [Moles/Vol] 3.5 mmol/L 3.5-5.1 [facility] Work [facility]: Sodium [Moles/Vol] 139 mmol/L 136-145 [facility] Work Phone: WBC (Bld) [#/Vol] 6.1 10*3/uL 4.4-11.0 [facility] Work Phone: Basophil percentage 0-5 SEEN /hpf [facility] Work Phone: Bilirubin Test strip Ql (U)o n 08-28-2021 Bilirubin Ql (U) Negative Negative [facility] Work Phone: Blood erythrocytes count (nu mber/volume)on 08-28-2021 RBC (Bld) [#/Vol] 4.84 10*6/uL 4.6-6.2 [facility] Work Phone: Blood hemoglobin measurement (mass/volume)on 08-28-2021 Hemoglobin (Bld) [Mass/Vol] 14.6 g/dL 13.0-16.5 [facility] Work Phone: Blood lymphocytes/100 leukoc yteson 08-28-2021 Lymphocytes/100 WBC (Bld) 38.3 % 19-41 [facility] Work Phone: Blood monocytes/100 leukocyt eson 08-28-2021 Monocytes/100 WBC (Bld) 6.0 % 0-10 [facility] Work Phone: Blood platelet mean volumeon 08-28-2021 Platelet mean volume (Bld) [Entitic vol] 9.7 fL 6.2-12.0 [facility] Work Phone: Determination of erythrocyte mean corpuscular volume (MCV)on 08-28-2021 MCV (RBC) [Entitic vol] 86.6 fL 80-94 [facility] Work Phone: Hematocrit Auto (Bld) [Volum e fraction]on 08-28-2021 Hematocrit (Bld) [Volume fraction] 41.9 % 40-54 [facility] Work Phone: Ketones Test strip Ql (U)on 08-28-2021 Ketones Ql (U) Negative Negative [facility] Work Phone: Laboratory - Chemistry and C hemistry - challengeon 08-28-2021 CO2 [Moles/Vol] 29.0 mmol/L 21.0-32.0 [facility] Work Phone: Urea nitrogen/Creatinine [Mass ratio] 13.4 mg/mg 10-20 [facility] Work Phone: Laboratory - Hematology and Cell countson 08-28-2021 Erythrocyte distribution width (RBC) [Entitic vol] 40.1 fL 35.1-43.9 [facility] Work Phone: Erythrocyte distribution width (RBC) [Ratio] 12.7 % 11.6-14.6 [facility] Work Phone: Immature granulocytes/100 WBC (Bld) 0.300 % 0.0-0.9 [facility] Work Phone: Comment on above: IG% - Immature Granu locytes (promyelocytes, myelocytes and metamyelocytes) > 1% indicates that a LEFT SHIFT is Present. MCH (RBC) [Entitic mass] 30.2 pg 27.0-32.0 [facility] Work Phone: Nucleated RBC/100 WBC (Bld) [Ratio] 0 % 0-5 [facility] Work Phone: MCHC Auto (RBC) [Mass/Vol]on 08-28-2021 MCHC (RBC) [Mass/Vol] 34.8 g/dL 32-36 [facility] Work Phone: Mucus LM Ql (Urine sed)on Mucus Ql (Urine sed) RARE /hpf [facility] Work Phone: Nitrite Test strip Ql (U)on 08-28-2021 Nitrite Ql (U) Negative Negative [facility] Work Phone: No Panel Informationon 08-28 Estimated Creatinine Clearance Calc 122.29 ml/min [facility] Work Phone: Estimated GFR (MDRD) Amer 123 mL/min >60 [facility] Work Phone: Comment on above: GFR Calc Estimated GFR (MDRD) Non-Af Amer 102 mL/min >60 [facility] Work Phone: Comment on above: Non- GFR Calc Platelets bldon 08-28-2021 Platelets (Bld) [#/Vol] 258 10*3/uL 150-450 [facility] Work Phone: Protein Test strip Ql (U)on 08-28-2021 Protein Ql (U) Negative Negative [facility] Work Phone: Serum or plasma calcium ja urement (mass/volume)on 08-28-2021 Calcium [Mass/Vol] 9.2 mg/dL 8.5-10.1 [facility] Work Phone: Serum or plasma creatinine m easurement (mass/volume)on 08-28-2021 Creatinine [Mass/Vol] 0.97 mg/dL 0.70-1.30 [facility] Work Phone: Comment on above: The validity of the calculated GFR & GFRAA in patients over 70 years has not been determined. Clinical correlation is essential. Serum or plasma urea nitroge n measurement (mass/volume)on 08-28-2021 Urea nitrogen [Mass/Vol] 13 mg/dL 7-18 [facility] Work Phone: Squamous epithelial cells de tection in urine sediment by light microscopyon 08-28-2021 Epithelial cells.squamous LM Ql (Urine sed) 0-5 SEEN /hpf [facility] Work Phone: Thin prep Papanicolaou smear with manual screeningon 08-28-2021 Thin prep Papanicolaou smear with manual screening 3 5-15 [facility] Work Phone: Urine blood detectionon 08-17 RBC Ql (U) Negative Negative [facility] Work Phone: RBC Ql (U) 0-5 SEEN /hpf [facility] Work Phone: Urine clarityon 08-28-2021 Clarity (U) Clear Clear [facility] Work Phone: Urine color determinationon 08-28-2021 Color (U) Yellow Yellow [facility] Work Phone: Urine glucose detectionon Glucose Ql (U) Normal mg/dl Normal [facility] Work Phone: Urine leukocyte esterase det ection by dipstickon 08-28-2021 Leukocyte esterase Test strip Ql (U) Negative Negative [facility] Work Phone: Urine pHon 08-28-2021 pH (U) 6.0 [pH] [facility] Work Phone: Urine sediment bacteria coun t by microscopy (number/high power field)on 08-28-2021 Bacteria LM.HPF (Urine sed) [#/Area] RARE /hpf None Seen [facility] Work Phone: Urine specific gravity measu rementon 08-28-2021 Specific gravity (U) [Rel density] 1.015 [facility] Work Phone: Urobilinogen Auto test strip Ql (U)on 08-28-2021 Urobilinogen Ql (U) Normal mg/dl Normal [facility] Work Phone: SARS-CoV-2 (COVID-19) Ag IA. rapid Ql (Resp)on 07-25-2021 SARS-CoV-2 Antigen (Rapid) SARS-CoV-2 (COVID 19) [facility] Work Phone: Absolute lymphocyte counton 04-21-2021 Lymphocytes Auto (Unsp spec) [#/Vol] 2.76 10*3/uL 0.83-4.51 [facility] Work Phone: Basophil percentageon 2021 Basophils/100 WBC (Bld) 0.6 % 0-1 [facility] Work Phone: Bilirubin [Mass/Vol] 0.30 mg/dL 0.20-1.00 [facility] Work Phone: Comment on above: For patients on eltr ombopag therapy, use of Dimension [place] TBIL is not recommended. Chloride [Moles/Vol] 108 mmol/L 98-107 [facility] Work Phone: Eosinophils/100 WBC (Bld) 5.3 % 0-5 [facility] Work Phone: Glucose [Mass/Vol] 104 mg/dL 74-106 [facility] Work Phone: Comment on above: Fasting Glucose resu lt from 100 to 125 mg/dL suggests IMPAIRED HOMEOSTASIS per A.D.A. criteria. Neutrophils (Bld) [#/Vol] 6.3 10*3/uL 2.0-7.7 [facility] Work Phone: Neutrophils/100 WBC (Bld) 60.8 % 47-70 [facility] Work Phone: Potassium [Moles/Vol] 3.7 mmol/L 3.5-5.1 [facility] Work Phone: Protein [Mass/Vol] 7.6 g/dL 6.4-8.[facility] Work Phone: Sodium [Moles/Vol] 140 mmol/L 136-145 [facility] Work Phone: WBC (Bld) [#/Vol] 10.4 10*3/uL 4.4-11.0 [facility] Work Phone: Basophil percentage 0 [facility]EN [facility] Work Phone: Bilirubin Test strip Ql (U)o n 04-21-2021 Bilirubin Ql (U) Negative Negative [facility] Work Phone: Blood erythrocytes count (nu mber/volume)on 04-21-2021 RBC (Bld) [#/Vol] 4.80 10*6/uL 4.6-6.2 [facility] Work Phone: Blood hemoglobin measurement (mass/volume)on 04-21-2021 Hemoglobin (Bld) [Mass/Vol] 14.8 g/dL 13.0-16.5 [facility] Work Phone: Blood lymphocytes/100 leukoc yteson 04-21-2021 Lymphocytes/100 WBC (Bld) 26.6 % 19-41 [facility] Work Phone: Blood manual differential co mment interpretation (narrative result)on 04-21-2021 Manual differential comment [place] (Bld) [Interp] SCANNED [facility] Work Phone: Blood monocytes/100 leukocyt eson 04-21-2021 Monocytes/100 WBC (Bld) 6.3 % 0-10 [facility] Work Phone: Blood platelet mean volumeon 04-21-2021 Platelet mean volume (Bld) [Entitic vol] 9.6 fL 6.2-12.0 [facility] Work Phone: Determination of erythrocyte mean corpuscular volume (MCV)on 04-21-2021 MCV (RBC) [Entitic vol] 86.5 fL 80-94 [facility] Work Phone: Hematocrit Auto (Bld) [Volum e fraction]on 04-21-2021 Hematocrit (Bld) [Volume fraction] 41.5 % 40-54 [facility] Work Phone: Ketones Test strip Ql (U)on 04-21-2021 Ketones Ql (U) Negative Negative [facility] Work Phone: Laboratory - Chemistry and C hemistry - challengeon 04-21-2021 ALP [Catalytic activity/Vol] 72 U/L 45-117 [facility] Work Phone: ALT [Catalytic activity/Vol] 44 U/L 16-61 [facility] Work Phone: CO2 [Moles/Vol] 27.0 mmol/L 21.0-32.0 [facility] Work Phone: Globulin (S) [Mass/Vol] 3.7 g/dL 2.2-4.2 [facility] Work Phone: Urea nitrogen/Creatinine [Mass ratio] 9.2 mg/mg 10-20 [facility] Work Phone: Laboratory - Hematology and Cell countson 04-21-2021 Erythrocyte distribution width (RBC) [Entitic vol] 37.7 fL 35.1-43.9 [facility] Work Phone: Erythrocyte distribution width (RBC) [Ratio] 11.9 % 11.6-14.6 [facility] Work Phone: Immature granulocytes/100 WBC (Bld) 0.400 % 0.0-0.9 [facility] Work Phone: Comment on above: IG% - Immature Granu locytes (promyelocytes, myelocytes and metamyelocytes) > 1% indicates that a LEFT SHIFT is Present. MCH (RBC) [Entitic mass] 30.8 pg 27.0-32.0 [facility] Work Phone: Nucleated RBC/100 WBC (Bld) [Ratio] 0 % 0-5 [facility] Work Phone: MCHC Auto (RBC) [Mass/Vol]on 04-21-2021 MCHC (RBC) [Mass/Vol] 35.7 g/dL 32-36 [facility] Work Phone: Mucus LM Ql (Urine sed)on Mucus Ql (Urine sed) 0 SEEN /hpf [facility] Work Phone: Nitrite Test strip Ql (U)on 04-21-2021 Nitrite Ql (U) Negative Negative [facility] Work Phone: No Panel Informationon 04-21 Atypical Lymphocytes RARE % [facility] Work Phone: Estimated Creatinine Clearance Calc 88.45 ml/min [facility] Work Phone: Estimated GFR (MDRD) Amer 87 mL/min >60 [facility] Work Phone: Comment on above: GFR Calc Estimated GFR (MDRD) Non-Af Amer 72 mL/min >60 [facility] Work Phone: Comment on above: Non- GFR Calc Platelets bldon 04-21-2021 Platelets (Bld) [#/Vol] 279 10*3/uL 150-450 [facility] Work Phone: Protein Test strip Ql (U)on 04-21-2021 Protein Ql (U) Negative Negative [facility] Work Phone: Serum or plasma albumin ja urement (mass/volume)on 04-21-2021 Albumin [Mass/Vol] 3.9 g/dL 3.2-5.0 [facility] Work Phone: Serum or plasma albumin/glob ulin mass ratioon 04-21-2021 Albumin/Globulin [Mass ratio] 1.1 {ratio} 0.9-2.4 [facility] Work Phone: Serum or plasma calcium ja urement (mass/volume)on 04-21-2021 Calcium [Mass/Vol] 8.8 mg/dL 8.5-10.1 [facility] Work Phone: Serum or plasma creatinine m easurement (mass/volume)on 04-21-2021 Creatinine [Mass/Vol] 1.31 mg/dL 0.70-1.30 [facility] Work Phone: Comment on above: The validity of the calculated GFR & GFRAA in patients over 70 years has not been determined. Clinical correlation is essential. Serum or plasma urea nitroge n measurement (mass/volume)on 04-21-2021 Urea nitrogen [Mass/Vol] 12 mg/dL 7-18 [facility] Work Phone: Squamous epithelial cells de tection in urine sediment by light microscopyon 04-21-2021 Epithelial cells.squamous LM Ql (Urine sed) 0 SEEN /hpf [facility] Work Phone: Thin prep Papanicolaou smear with manual screeningon 04-21-2021 Thin prep Papanicolaou smear with manual screening 22 U/L 15-37 [facility] Work Phone: Thin prep Papanicolaou smear with manual screening 5 5-15 [facility] Work Phone: Urine blood detectionon 02- RBC Ql (U) Negative Negative [facility] Work Phone: RBC Ql (U) 0 SEEN /hpf [facility] Work Phone: Urine clarityon 04-21-2021 Clarity (U) Clear Clear [facility] Work Phone: Urine color determinationon 04-21-2021 Color (U) Yellow Yellow [facility] Work Phone: Urine glucose detectionon Glucose Ql (U) Normal mg/dl Normal [facility] Work Phone: Urine leukocyte esterase det ection by dipstickon 04-21-2021 Leukocyte esterase Test strip Ql (U) Negative Negative [facility] Work Phone: Urine pHon 04-21-2021 pH (U) 6.5 [pH] [facility] Work Phone: Urine sediment bacteria coun t by microscopy (number/high power field)on 04-21-2021 Bacteria LM.HPF (Urine sed) [#/Area] 0 /[HPF] None Seen [facility] Work Phone: Urine specific gravity measu rementon 04-21-2021 Specific gravity (U) [Rel density] 1.015 [facility] Work Phone: Urobilinogen Auto test strip Ql (U)on 04-21-2021 Urobilinogen Ql (U) Normal mg/dl Normal [facility] Work Phone: Progress Noteon 05-23-2017 [employer] Authentication Interface Message Text Patient ID: Osmin Harrington is a 17 y.o. male. His chief complaint(s) include:Exposure to STD (girlfriend tested positive for Clymidia).Assessment :1. Exposure to sexually transmitted disease (STD)Plan:Osmin was seen today for exposure to std.Diagnoses and all orders for this visit:Exposure to sexually transmitted disease (STD)- Discontinue: azithromycin (ZITHROMAX) tablet 1,000 mg;Take 4 Tabs (1,000 mg) by mouth once- Amplified Probe - Urine-First Void- Urine culture- C. trachomatis, amplified probe - Urine-First Void- azithromycin (ZITHROMAX) 1 g oral suspension; Take 1 Packet (1 g) by mouthonce for 1 doseReturn for Well Visit and as needed.Subjective:He is unaccompanied. Exposure to STDThis problem is new. The duration has been 1 day.The onset has been acute. The course is unchanging (patient exposed tochlamydia). The patient's symptoms have included no fatigue, no fever, nodecreased appetite, no decreased fluid intake, no difficulty sleeping, nocongestion, no sore throat, no cough, no headaches, no abdominal pain, nodiarrhea and no vomiting. The symptoms are described as mild. There have beenno previous interventions.Primar y Care Review of SystemsObjective:Phy sical ExamConstitutional: He appears well. He is active. No distress.HENT:Head: Atraumatic.Right Ear: Tympanic membrane normal.Left Ear: Tympanic membrane normal.Mouth/Throat: Mucous membranes are moist.Eyes: Conjunctivae are normal.Cardiovascula r: Normal rate and regular rhythm.No murmur heard.Pulmonary/Ches t: Breath sounds normal. There is normal air entry.Neurological: He is alert.Vitals reviewed: Temperature 36.4 C (97.5 F), temperature source Temporal,weight 82.1 kg. Normal [facility] Progress Noteon 03-29-2017 [employer] Operator Authentication Interface Message Text [facility] NOTENAME: OSMIN HARRINGTONIT#: [id number]#: [id number] OF : 2000DATE OF SERVICE: 03/29/2017ATTENDING PHYS:CHIEF COMPLAINT: Back pain.HISTORY OF PRESENT ILLNESS: Osmin is here. I had previously seen him forconcern for left-sided L5-S1 herniated disk. He had done well since the lasttime I saw him with his pain completely resolving. Unfortunately, a few weeksago he was trying to help somebody move a dryer, when they went to lift it upand then set it down he had the immediate onset of left lower back pain. Thisflared up about 3 times since that original incident, a couple times as resulthe has had near syncopal responses. He denies any saddle anesthesia. Nourinary or bowel incontinence or retention. No radicular complaint.PHYSICAL EXAM: His gait is normal. He is nontender over the midline of hisback. He is tender over the paraspinal musculature bilaterally in the lumbarspine but particularly on the left side with just palpation reproducing hissymptoms. He has good Wright forward bend. He has good flexion and extension ofhis lumbar spine as well as lateral bend. No focal neuro deficits bilaterallower extremities. He has full 5/5 strength all muscle groups bilateral lowerextremities. Light sensation intact to all dermatomes bilateral lowerextremities. Negative straight leg raise bilaterally. 3+ patellar and Achillesreflexes equal bilaterally. Downgoing Babinski bilaterally. Three beats ofclonus equal bilaterally.IMAGING: I ordered, obtained, interpreted AP and lateral films of the lumbarspine. I see no acute bony abnormality. No spondylolysis or fractures noted.ASSESSMENT AND PLAN: Lumbar strain. Reviewed again conservative care whichalleviated his pain previously when I saw him with scheduled anti-inflammatoriesf or the next 3 weeks, backing off to an as-needed basis, the need for a heat padand I also referred him to physical therapy to help work on some stretching andcore strengthening. He will follow up on a p.r.n. basis. Roque Lake M.D.[id number]: 03/29/2017 09:51:29T: 03/29/2017 10:38:07[facility]/[id number] Normal [facility] Automatic [employer] Operator Authentication Interface Message Text My progress note has been dictated.Review of systems is negative for other significant musculoskeletal pain, lossof vision, hearing loss, high blood pressure, shortness of breath, skin ulcers,paresthesia, lymphedema, temperature intolerance, or nausea, unless otherwisestated in the history of present illness or past medical history. Normal [facility] Progress Noteon 03-23-2017 [employer] Authentication Interface Message Text Patient ID: Osmin Harrington is a 16 y.o. male. His chief complaint(s) include: [facility]-lower back pain).Assessment:1. Left-sided low back pain with left-sided sciatica, unspecified chronicity2. Chronic bilateral low back pain with left-sided sciaticaPlan:Osmin was seen today for ed follow up.Diagnoses and all orders for this visit:Left-sided low back pain with left-sided sciatica, unspecified chronicity- AMB Referral To Orthopedic Surgery- oxyCODONE-acetaminop hen (PERCOCET) 5-325 MG tablet; Take 1 Tab (5 mg) bymouth every 6 hours as needed for PainReturn if symptoms worsen or fail to improve.Subjective:Penelope avila is accompanied by his mother and relative(s).ED Follow UpThe course is worsening. The patient was discharged 1 week ago. [facility] Diagnosis: back pain/had back injury 2 yearsago.Additional Parental Concerns: Patient not doing any better. Not tolerating theflexerell--wasn't getting better so stopped taking. Patient injured back coupleyears ago. Had been doing fairly well until the other day he was helping lift aheavy object. Pain occurred when he tried to put it down on the floor. Doesn'trecall twisting the back. Not having any incontinence, just having a lot of painand limited movement. Was seen in the past by orthopedics. MRI showed a smalldisc bulge. Will have patient reevaluated. Patient has declined PT in past sowill hold on that referral for now.Primary Care Review of SystemsObjective:Rafi sical ExamConstitutional: He appears well. He is active. No distress.HENT:Head: Atraumatic.Right Ear: Tympanic membrane normal.Left Ear: Tympanic membrane normal.Mouth/Throat: Mucous membranes are moist.Eyes: Conjunctivae are normal.Cardiovascula r: Normal rate and regular rhythm.No murmur heard.Pulmonary/Ches t: Breath sounds normal. There is normal air entry.Musculoskeleta l: He exhibits tenderness.Tendernes s to palpation on left lower back. No erythema or warmth. Spinalcolumn appeared to be without discomfort with palpation. Pain with flexion andextension, rotation and side bends. Slightly decreased strength on left leglifts.Neurologica l: He is alert.Vitals reviewed: Temperature 36.7 C (98 F), temperature source Temporal,weight 80.7 kg. Normal [facility] Emergency Room Note on 03-17-2017 [place] [facility] Note Normal [facility] ([place]) Patient Summary Documentson 03-17-2017 Patient Summary Documents Normal [facility] [place] [facility] Note on 11-17-2016 [facility] Normal [facility] [place] Patient Summary Documentson 11-17-2016 Patient Summary Documents Normal [facility] [place] [facility] Note on 09-25-2016 [facility] Note Normal [facility] Patient Summary Documentson 09-23-2016 Patient Summary Documents Normal [facility] Vital Signs Date Time Vital Sign Value Performing Clinician Eduardo bland 12-17-2024 02:50-0400 Body temperature 98 [degF] No Primary Care Physician [facility] 12-17-2024 02:50-0400 Diastolic blood pressure 62 mm[Hg] No Primary Care Physician [facility] 12-17-2024 02:50-0400 Heart rate 88 /min No Primary Care Physician [facility] 12-17-2024 02:50-0400 Respiratory rate 18 /min No Primary Care Physician [facility] 12-17-2024 02:50-0400 SaO2% (BldA) [Mass fraction] 99 % No Primary Care Physician [facility] 12-17-2024 02:50-0400 Systolic blood pressure 142 mm[Hg] No Primary Care Physician [facility] 12-17-2024 01:02-0400 Body height 175.26 cm No Primary Care Physician [facility] 12-17-2024 01:02-0400 Body mass index (BMI) [Ratio] 47.2 kg/m2 No Primary Care Physician [facility] 12-17-2024 01:02-0400 Body weight 145 kg No Primary Care Physician [facility] 05-23-2023 15:39-0500 Body temperature 98.8 [degF] [facility] 05-23-2023 15:39-0500 Diastolic blood pressure 77 mm[Hg] [facility] 05-23-2023 15:39-0500 Heart rate 74 /min [facility] 05-23-2023 15:39-0500 Respiratory rate 16 /min [facility] 05-23-2023 15:39-0500 SaO2% (BldA) [Mass fraction] 100 % [facility] 05-23-2023 15:39-0500 Systolic blood pressure 127 mm[Hg] [facility] 05-23-2023 14:43-0500 Body height 175.26 cm [facility] 05-23-2023 14:43-0500 Body mass index (BMI) [Ratio] 45 kg/m2 [facility] 05-23-2023 14:43-0500 Body weight 138.34 kg [facility] 05-22-2023 00:07-0500 Body temperature 98.3 [degF] [facility] 05-22-2023 00:07-0500 Diastolic blood pressure 65 mm[Hg] [facility] 05-22-2023 00:07-0500 Heart rate 101 /min [facility] 05-22-2023 00:07-0500 Respiratory rate 18 /min [facility] 05-22-2023 00:07-0500 SaO2% (BldA) [Mass fraction] 97 % [facility] 05-22-2023 00:07-0500 Systolic blood pressure 117 mm[Hg] [facility] 05-21-2023 20:31-0500 Body height 175.26 cm [facility] 05-21-2023 20:31-0500 Body mass index (BMI) [Ratio] 46.4 kg/m2 [facility] 05-21-2023 20:31-0500 Body weight 142.65 kg [facility] 07-09-2022 17:38-0400 Diastolic blood pressure 82 mm[Hg] [facility] 07-09-2022 17:38-0400 Heart rate 62 /min [facility] 07-09-2022 17:38-0400 Respiratory rate 19 /min [facility] 07-09-2022 17:38-0400 SaO2% (BldA) [Mass fraction] 100 % [facility] 07-09-2022 17:38-0400 Systolic blood pressure 132 mm[Hg] [facility] 07-09-2022 13:25-0400 Body height 175.26 cm [facility] 07-09-2022 13:25-0400 Body mass index (BMI) [Ratio] 46.9 kg/m2 [facility] 07-09-2022 13:25-0400 Body temperature 96.8 [degF] [facility] 07-09-2022 13:25-0400 Body weight 144.24 kg [facility] 05-24-2022 22:43-0500 Body height 175.26 cm [facility] 05-24-2022 22:43-0500 Body mass index (BMI) [Ratio] 47.5 kg/m2 [facility] 05-24-2022 22:43-0500 Body temperature 98.4 [degF] [facility] 05-24-2022 22:43-0500 Body weight 145.82 kg [facility] 05-24-2022 22:43-0500 Diastolic blood pressure 96 mm[Hg] [facility] 05-24-2022 22:43-0500 Heart rate 107 /min [facility] 05-24-2022 22:43-0500 Respiratory rate 16 /min [facility] 05-24-2022 22:43-0500 SaO2% (BldA) [Mass fraction] 97 % [facility] 05-24-2022 22:43-0500 Systolic blood pressure 182 mm[Hg] [facility] 05-19-2022 21:25-0500 Body height 175.26 cm [facility] 05-19-2022 21:25-0500 Body mass index (BMI) [Ratio] 47.8 kg/m2 [facility] 05-19-2022 21:25-0500 Body temperature 97.3 [degF] [facility] 05-19-2022 21:25-0500 Body weight 147 kg [facility] 05-19-2022 21:25-0500 Diastolic blood pressure 76 mm[Hg] [facility] 05-19-2022 21:25-0500 Heart rate 102 /min [facility] 05-19-2022 21:25-0500 Respiratory rate 16 /min [facility] 05-19-2022 21:25-0500 SaO2% (BldA) [Mass fraction] 96 % [facility] 05-19-2022 21:25-0500 Systolic blood pressure 146 mm[Hg] [facility] 08-28-2021 17:51-0400 Heart rate 99 /min Dr. Jez Rosales Work Phone: [facility] Work Phone: 08-28-2021 17:51-0400 Respiratory rate 17 /min Dr. Jez Rosales Work Phone: [facility] Work Phone: 08-28-2021 17:51-0400 SaO2% (BldA) [Mass fraction] 97 % Dr. Jez Rosales Work Phone: [facility] Work Phone: 08-28-2021 16:15-0400 Body height 177.[address] Jez Rosales Work Phone: [facility] Work Phone: 08-28-2021 16:15-0400 Body mass index (BMI) [Ratio] 40.1 kg/m2 Dr. Jez Rosales Work Phone: [facility] Work Phone: 08-28-2021 16:15-0400 Body temperature 98.8 [degF] Dr. Jez Rosales Work Phone: [facility] Work Phone: 08-28-2021 16:15-0400 Body weight [address] Jez Rosales Work Phone: [facility] Work Phone: 08-28-2021 16:15-0400 Diastolic blood pressure 94 mm[Hg] Dr. Jez Rosales Work Phone: [facility] Work Phone: 08-28-2021 16:15-0400 Systolic blood pressure 161 mm[Hg] Dr. Jez Rosales Work Phone: [facility] Work Phone: 07-25-2021 15:01-0400 Body height 175.[address] Jez Rosales Work Phone: [facility] Work Phone: 07-25-2021 15:01-0400 Body mass index (BMI) [Ratio] 41.3 kg/m2 Dr. Jez Rosales Work Phone: [facility] Work Phone: 07-25-2021 15:01-0400 Body temperature 97.1 [degF] Dr. Jez Rosales Work Phone: [facility] Work Phone: 07-25-2021 15:01-0400 Body weight [address] Jez Rosales Work Phone: [facility] Work Phone: 07-25-2021 15:01-0400 Diastolic blood pressure 74 mm[Hg] Dr. Jez Rosales Work Phone: [facility] Work Phone: 07-25-2021 15:01-0400 Heart rate 84 /min Dr. Jez Rosales Work Phone: [facility] Work Phone: 07-25-2021 15:01-0400 Respiratory rate 16 /min Dr. Jez Rosales Work Phone: [facility] Work Phone: 07-25-2021 15:01-0400 SaO2% (BldA) [Mass fraction] 97 % Dr. Jez Rosales Work Phone: [facility] Work Phone: 07-25-2021 15:01-0400 Systolic blood pressure 138 mm[Hg] Dr. Jez Rosales Work Phone: [facility] Work Phone: 06-15-2021 14:38-0400 Body temperature 98.4 [degF] Dr. Jez Rosales Work Phone: [facility] Work Phone: 06-15-2021 14:38-0400 Diastolic blood pressure 68 mm[Hg] Dr. Jez Rosales Work Phone: [facility] Work Phone: 06-15-2021 14:38-0400 Heart rate 84 /min Dr. Jez Rosales Work Phone: [facility] Work Phone: 06-15-2021 14:38-0400 Respiratory rate 16 /min Dr. Jez Rosales Work Phone: [facility] Work Phone: 06-15-2021 14:38-0400 SaO2% (BldA) [Mass fraction] 96 % Dr. Jez Rosales Work Phone: [facility] Work Phone: 06-15-2021 14:38-0400 Systolic blood pressure 158 mm[Hg] Dr. Jez Rosales Work Phone: [facility] Work Phone: 06-15-2021 06:23-0400 Body height 175.[address] Jez Rosales Work Phone: [facility] Work Phone: 06-15-2021 06:23-0400 Body mass index (BMI) [Ratio] 42.3 kg/m2 Dr. Jez Rosales Work Phone: [facility] Work Phone: 06-15-2021 06:23-0400 Body weight [address] Jez Rosales Work Phone: [facility] Work Phone: 05-16-2021 19:34-0500 Body mass index (BMI) [Ratio] 41.8 kg/m2 Dr. Jez Rosales Work Phone: [facility] Work Phone: 05-16-2021 19:34-0500 Body temperature 98.1 [degF] Dr. Jez Rosales Work Phone: [facility] Work Phone: 05-16-2021 19:34-0500 Body weight 128.[address] Jez Rosales Work Phone: [facility] Work Phone: 05-16-2021 19:34-0500 Diastolic blood pressure 94 mm[Hg] Dr. Jez Rosales Work Phone: [facility] Work Phone: 05-16-2021 19:34-0500 Heart rate 100 /min Dr. Jez Rosales Work Phone: [facility] Work Phone: 05-16-2021 19:34-0500 Respiratory rate 18 /min Dr. Jez Rosales Work Phone: [facility] Work Phone: 05-16-2021 19:34-0500 SaO2% (BldA) [Mass fraction] 98 % Dr. Jez Rosales Work Phone: [facility] Work Phone: 05-16-2021 19:34-0500 Systolic blood pressure 148 mm[Hg] Dr. Jez Rosales Work Phone: [facility] Work Phone: 04-21-2021 23:48-0500 Diastolic blood pressure 70 mm[Hg] Dr. Jez Rosales Work Phone: [facility] Work Phone: 04-21-2021 23:48-0500 Systolic blood pressure 127 mm[Hg] Dr. Jez Rosales Work Phone: [facility] Work Phone: 04-21-2021 22:13-0500 Body mass index (BMI) [Ratio] 40.3 kg/m2 Dr. Jez Rosales Work Phone: [facility] Work Phone: 04-21-2021 22:13-0500 Body temperature 98.3 [degF] Dr. Jez Rosales Work Phone: [facility] Work Phone: 04-21-2021 22:13-0500 Body weight 123.[address] Jez Rosales Work Phone: [facility] Work Phone: 04-21-2021 22:13-0500 Heart rate 85 /min Dr. Jez Rosales Work Phone: [facility] Work Phone: 04-21-2021 22:13-0500 Respiratory rate 18 /min Dr. Jez Rosales Work Phone: [facility] Work Phone: 04-21-2021 22:13-0500 SaO2% (BldA) [Mass fraction] 98 % Dr. Jez Rosales Work Phone: [facility] Work Phone: Encounters Encounter Date Encounter Type Care Provider Facility Start: 12-17-2024 End: 12-17-2024 Emergency department patient visit No Primary Care Physician -Emergency Department Work Phone: Start: 05-23-2023 End: 05-23-2023 Emergency department patient visit [facility] Work Phone: Start: 05-21-2023 End: 05-22-2023 Emergency department patient visit [facility] Work Phone: Start: 07-09-2022 End: 07-09-2022 Emergency department patient visit [facility] Start: 05-24-2022 End: 05-24-2022 Emergency department patient visit [facility] Start: 05-19-2022 End: 05-19-2022 Emergency department patient visit [facility] Start: 08-28-2021 End: 08-28-2021 Emergency department patient visit Dr. Jez Rosales Work Phone: [facility] Start: 07-25-2021 End: 07-25-2021 Emergency department patient visit Dr. Jez Rosales Work Phone: [facility] Start: 06-15-2021 End: 06-15-2021 Admission to same day surgery center [facility] Start: 06-07-2021 Non-patient / Non-visit Dr. Michelle Rosales Work Phone: [facility] Start: 05-16-2021 End: 05-16-2021 Emergency department patient visit Dr. Jez Rosales Work Phone: [facility] Start: 04-21-2021 End: 04-22-2021 Emergency department patient visit Dr. Jez Rosales Work Phone: [facility] Start: 05-23-2017 End: 05-23-2017 Ambulatory [facility] Start: 03-29-2017 End: 03-30-2017 Ambulatory [facility] Start: 03-23-2017 End: 03-23-2017 [facility] Start: 03-17-2017 End: 03-17-2017 Emergency department patient visit [facility] Facility:B Start: 12-09-2016 Emergency department patient visit [facility] Facility:[facility] Start: 11-17-2016 End: 11-17-2016 Emergency department patient visit [facility] Facility:[facility] Start: 09-23-2016 End: 09-23-2016 Emergency department patient visit [facility]RIST[facility] Facility:[facility] Procedures Date Procedure Procedure Detail Performing Clinician Start: 05-21-2023 SARS-CoV-2, Influenz a & RSV (PCR) Start: 07-25-[address] Jez Rosales Work Phone: Start: 06-15-2021 Fluoroscopic guidance Amador Rosales Work Phone: Start: 06-15-2021 Lap Robotic Pyelopla sty (Right) Dr. Jez Rosales Work Phone: Start: 06-14-2021 End: 06-14-[address] Jez Rosales Work Phone: Start: 04-21-2021 CT of abdomen and pe lvis without contrast Dr. Jez Rosales Work Phone: Plan of Treatment Date Care Activity Detail Author Start: 12-17-2024 [facility] Start: 05-22-2023 [facility] Start: 05-21-2023 [facility] Start: 05-24-2022 [facility] Start: 06-15-2021 Anes xtrprtl lower a bd ur tract renal don nfrct ANESTH KIDNEY/URETER SURG [facility] Work Phone: Start: 06-15-2021 Cysto w/insert urete ral stent CYSTOSCOPY AND TREATMENT [facility] Work Phone: Start: 06-15-2021 Laparoscopy surg pyeloplasty LAPAROSCOPY PYELOPLASTY [facility] Work Phone: Start: 05-16-2021 Smpl repair scalp/neck/ax/genit/trun k 2.6-7.5cm RPR S/N/AX/GEN/TRNK2.6-7.5C M [facility] Rehabilitation Work Phone: Patient Education [facility] Work Phone: Patient referral [facility] Work Phone: Immunizations Immunization Date Immunization Notes Care Provider Fa cili 05-16-2021 tetanus toxoid, redu alex diphtheria toxoid, and acellular pertussis vaccine, adsorbed Dr. Jez Rosales Work Phone: [facility] Payers Date Payer Category Payer [employer] ( and others) [id number] 2024 Self-pay [id number] 2015 Unknown [id number] Unknown [id number] Unknown [facility] [id number] Unknown [id number] Social History Date Type Detail Facility Start: 06-06-2021 End: 05-23-2023 Tobacco smoking status NHIS Unknown if ever smoked [facility] Start: 10-31-2019 Spouse/ Signif icant Other [facility] Start: 2000 Sex Assigned At Male [facility] Start: 12-17-2024 Tobacco smoking status NHIS Never smoked tobacco (finding) [facility] Sex Male [facility] Medical Equipment Procedure Code Equipment Code Equipment Origin al Text Equipment Identifier Dates SEALANT,FLOSEAL HEMOSTATIC 5ML FDA Start: 06-15-2021 STENT,URETERAL PIGTAIL 6FRx26 FDA Start: 06-15-2021 SEALANT,FLOSEAL HEMOSTATIC 5ML FDA Start: 06-15-2021 STENT,URETERAL PIGTAIL 6FRx26 FDA Start: 06-15-2021 SEALANT,FLOSEAL HEMOSTATIC 5ML FDA Start: 06-15-2021 STENT,URETERAL PIGTAIL 6FRx26 FDA Start: 06-15-2021 SEALANT,FLOSEAL HEMOSTATIC 5ML FDA Start: 06-15-2021 STENT,URETERAL PIGTAIL 6FRx26 FDA Start: 06-15-2021 SEALANT,FLOSEAL HEMOSTATIC 5ML FDA Start: 06-15-2021 STENT,URETERAL PIGTAIL 6FRx26 FDA Start: 06-15-2021 SEALANT,FLOSEAL HEMOSTATIC 5ML FDA Start: 06-15-2021 STENT,URETERAL PIGTAIL 6FRx26 FDA Start: 06-15-2021 SEALANT,FLOSEAL HEMOSTATIC 5ML FDA Start: 06-15-2021 STENT,URETERAL PIGTAIL 6FRx26 FDA Start: 06-15-2021 SEALANT,FLOSEAL HEMOSTATIC 5ML FDA Start: 06-15-2021 STENT,URETERAL PIGTAIL 6FRx26 FDA Start: 06-15-2021 Mental Status Date Assessment Result Facility 05-21-2023 Cognitive function Level Of Cons ciousness Awake;Alert;Appropriate;Follow s Commands [facility] Work Phone: 07-25-2021 Cognitive function Level Of Cons ciousness Awake;Alert;Appropriate;Follow s Commands [facility] Work Phone: 06-15-2021 Cognitive function Voice/Name [facility] Work Phone: 04-21-2021 Cognitive function Level Of Cons ciousness Awake;Alert;Appropriate;Follow s Commands [facility] Work Phone: Discharge summary 05-19-2022 Note Date & Type Note Facility 05-19-2022 Discharge summary Note Date/Time May 19, 2022 11:07pm [facility] Medical Records Department [address] [place] [address] Emergency Department Summary 05/19/22 MR#: [id number] Acct: [id number] Name: OSMIN HARRINGTON Rep #:[id number] 4 : 2000 22 From: Nhan Ruiz MD PCP: Care Physician,No Primary Status :REG ER Location: ED HPI HPI - URI History of Present Illness Chief Complaint: Ear Problem Narrative Narrative: 22-year-old male who denies significant past medical history presents with a fewdays of right earache and tinnitus. He developed pain down the right side of his neck, and a sore throat. He denies any fevers or chills. No cough, but he has had nasal congestion. He does not get frequent ear infections. He does notsmoke. No exacerbating or alleviating factors. His main concern is that he thinks he has an ear infection. Denies loss of hearing. ROS ROS ED ROS Narrative Constitutional: No fever, no chills. HEENT: No sore throat. Right-sided neck pain. No loss of vision. Nasal congestion and rhinorrhea. Right ear pain and ringing in ear a few days ago. Cardiovascular: No chest pain. No palpitations. No pedal edema. Respiratory: No cough, no shortness of breath. Abdominal: No abdominal pain. No nausea. No vomiting. Genitourinary: No dysuria. No hematuria. Musculoskeletal: No myalgias. No arthralgias. Neurologic: No headaches. No dizziness. No lightheadedness. Skin: No rash. No change in color. Psychiatric: No depression. No anxiety. [facility] Medical History Alcohol use COVID Gastric reflux Non-smoker Rash Home Medications NK 08/28/21 [History Last Taken Unknown] Allergy/AdvReac Type Severity Reaction Status Date / Time No Known Allergies Allergy Verified 08/28/21 16:17 Surgical History History of kidney surgery Social History Smoking Status: Never smoker EXAM Physical Exam Narrative Exam Narrative: Afebrile. Vital signs noted. HEENT: Normocephalic. Atraumatic. PERRL, EOMI. Neck soft and supple. No pointtenderness or step off. Inspection of the right ear shows no pain with movementof tragus. No mastoid tenderness or erythema. There is a small amount of cerumen in the canal. No TM erythema, no bulging of the TM. Positive nasal congestion. Airway patent. No drooling or trismus. No pharyngeal erythema. No cervical lymphadenopathy. Centor score is 0. Cardiovascular: Regular rate and rhythm. No murmurs, rubs, or gallops appreciated. Respiratory: No tachypnea. Lungs clear to auscultation bilaterally. Gastrointestinal: Abdomen soft, nontender, with normoactive bowel sounds. No rebound or guarding. Neurological: Awake. Alert. Nonfocal, nonlateralizing. Skin: No rash. Normal color. No pallor. Musculoskeletal: No pedal edema. Full range of motion extremities. Const Vital Signs: 05/19/22 21:25 05/19/22 21:25 Temperature 97.3 F L 97.3 F L Temperature Source Temporal Temporal Pulse Rate 102 H 102 H Respiratory Rate 18 16 Blood Pressure 146/76 H 146/76 H Blood Pressure Mean 99 99 Pulse Ox 96 96 Oxygen Delivery Method Room Air Room Air MDM MDM MDM Narrative Medical decision making narrative: I do not feel antibiotics are indicated. His symptoms of only been a few days, he does not have a fever. I did offer to swab him for strep pharyngitis, but hestates his throat is not extremely sore, and he declined. He was encouraged to use [id number] medications and nasal steroids. He will follow-up with a primary care provider. I feel he can be discharged safely home with follow-up. Return instructions to the emergency department were reviewed. Disposition is discharged home in stable condition. Discharge Plan Triage Chief Complaint: Ear Problem ED Provider: Nhan Ruiz Dx/Rx/DC Orders Clinical Impression: Right ear pain, Nasal congestion, Sore throat Instructions: Self-Care for Sore Throats, ED Earache Without Infection (Adult) Prescriptions: No Action NK Stand Alone Forms: ED Work / School Excuse Primary Care Provider: Care Physician,No Primary Referrals: Care Physician,No Primary [Primary Care Provider] - Activity Restrictions/Additional Instructions: Use Rhinocort AQ or Flonase nasal steroid [id number] as directed. Disposition Disposition: Home, Self Care What to do if you have Problems For any increased pain, shortness of breath, bleeding, nausea or vomiting, chestpain, or any unexpected problems, contact your Primary Care Provider. Call [facility] ([phone]) or report to the closest Emergency Room. Call 911 if necessary. 05/19/22 [id number] <Electronically signed by Nhan Ruiz MD> Cosigner Signature (if applicable): CC: No Primary Care Physician ~ Signed [facility] Work Phone: Evaluation note Note Date & Type Note Facility Evaluation note No assessment information availa ble [facility] Work Phone: Hospital Discharge instructions Note Date & Type Note Facility Hospital Discharge instructions [facility] Work Phone: Hospital Discharge instructions Note Date & Type Note Facility Hospital Discharge instructions [facility] Work Phone: Hospital Discharge instructions Note Date & Type Note Facility Hospital Discharge instructions Additional Instructions Your lab work was completely normal as was your kidney function in your urine. I suspect this to be a strain of your abdominal wall. Tylenol or Motrin for pain. Follow-up if not improving. Return if a lot worse. [facility] Work Phone: Hospital Discharge instructions Note Date & Type Note Facility Hospital Discharge instructions Additional Instructions Use Rhinocort AQ or Flonase nasal steroid [id number] as directed. [facility] Work Phone: Hospital Discharge instructions Note Date & Type Note Facility Hospital Discharge instructions Additional Instructions Alternate Tylenol and ibuprofen for pain, take antibiotic as prescribed. I have referred you to a PCP. [facility] Work Phone: Hospital Discharge instructions Note Date & Type Note Facility Hospital Discharge instructions Additional Instructions COVID-negative RSV negative. Influenza A+. Use medication as prescribed continue oral fluids for hydration. [facility] Work Phone: Hospital Discharge instructions Note Date & Type Note Facility Hospital Discharge instructions Additional Instructions Please take the antibiotic as directed as I feel your dental pain is related to developing dental infection. It will take on average 2 to 3 days for symptom improvement. Follow-up with your dentist for repeat evaluation and return to the ER should give any further concern [facility] Work Phone: Reason for referral (narrative) Note Date & Type Note Facility Reason for referral (narrative) No reason for referral information available [facility] Work Phone: Summary Purpose Family History No Family History Records FoundNo Family History Records FoundNo Family History Records FoundNo Family History Records Found Advance Directives No Advanced Directives Records Found Advance Directive Response Recorded Date/ Time Living Will No June 06, 2021 2:02pm Power of Manufacturing Inspector No June 06 2:02pm Advance Directive Response Recorded Date/ Time Living Will No July 25, 2021 5: 36pm Power of Manufacturing Inspector No July 25, 2021 5:36pm Advance Directive Response Recorded Date/ Time Living Will No August 28, 2021 4:23pm Power of Manufacturing Inspector No August 28 4:23pm Advance Directive Response Recorded Date/ Time Living Will No May 19, 2022 11:14pm Power of Manufacturing Inspector No May 19 11:14pm Advance Directive Response Recorded Date/ Time Living Will No May 24, 2022 11:32pm Power of Manufacturing Inspector No May 24 11:32pm Advance Directive Response Recorded Date/ Time Living Will No July 09, 2022 3:14pm Power of Manufacturing Inspector No July 09 3:14pm Advance Directive Response Recorded Date/ Time Living Will No May 21, 2023 10:36pm Power of Manufacturing Inspector No May 20 10:36pm Advance Directive Response Recorded Date/ Time Living Will No May 23, 2023 3:39pm Power of Manufacturing Inspector No May 22 3:39pm Advance Directive Response Recorded Date/ Time Do you have a Healthcare Power of Manufacturing Inspector? No December 17, 2024 1:02am Chief Complaint and Reason for Visit Chief Complaint FLANK PAIN LAC LAP ROBOTIC PYELOPLASTY, RT STENT LAP ROBOTIC PYELOPLASTY, RT STENT Chief Complaint FLANK PAIN LAC LAP ROBOTIC PYELOPLASTY, RT STENT LAP ROBOTIC PYELOPLASTY, RT STENT SORE THROAT Chief Complaint LAC LAP ROBOTIC PYELOPLASTY, RT STENT LAP ROBOTIC PYELOPLASTY, RT STENT SORE THROAT abd Chief Complaint EAR Chief Complaint EAR SORE THROAT Chief Complaint EAR SORE THROAT INGROWN TOENAIL Chief Complaint COUGH Chief Complaint COUGH flu, vertigo, ear pain Chief Complaint Admit Date dental December 17, 2024 1: 02am Additional Source Comments (unrecognized sect ion and content) No Status Records FoundNo Status Records FoundNo Status Records FoundNo Status Records Found INFORMATION SOURCE (unrecogn ized section and content) DATE CREATED AUTHOR 09/07/2017 [facility] DATE CREATED AUTHOR AUTHOR'S ORGANIZ ATION 09/11/2017 [facility] ([place]) DATE CREATED AUTHOR AUTHOR'S ORGANIZ ATION 09/12/2017 [facility] DATE CREATED AUTHOR AUTHOR'S ORGANIZ ATION 12/31/2024 [facility] Goals (unrecognized section and content) Goals may be documented in a n alternate sectionGoals may be documented in an alternate sectionGoals may be documented in an alternate sectionGoals may be documented in an alternate sectionGoals may be documented in an alternate sectionGoals may be documented in an alternate sectionGoals may be documented in an alternate sectionGoals may be documented in an alternate sectionGoals may be documented in an alternate section Care Teams (unrecognized sec tion and content) Team Status: Active Member Role Status Dates No Primary Care Physician Primary Care Provider Active Team Status: Inactive Member Role Status Dates No Primary Care Physician Primary Care Provider Active Nahn Ruiz MD Emergency Provider Active Team Status: Inactive Member Role Status Dates No Primary Care Physician Primary Care Provider Active Dr. Ankit Mars DO Emergency Provider Active Team Status: Inactive Member Role Status Dates No Primary Care Physician Primary Care Provider Active Nhan Ruiz MD Attending Provider, Emergency Provid er Active Team Status: Inactive Member Role Status Dates No Primary Care Physician Primary Care Provider Active Dr. Ankit Mars DO Attending Provider, Emergency Provider Active Team Status: Inactive Member Role Status Dates No Primary Care Physician Primary Care Provider Active Dr. Deondre Don MD Emergency Provider Active Team Status: Inactive Member Role Status Dates No Primary Care Physician Primary Care Provider Active Dr. Hugh Martinez , Emergency Provider Active Team Status: Active Member Role/Relationship Status Dates No Primary Care Physician Primary care physician Activ e Team Status: Inactive Member Role/Relationship Status Dates No Primary Care Physician Primary care physician Activ e Start: December 17, 2024 End: December 17, 2024 Dr. Alberto Tomlinson , DO Emergency Departme nt Physician Active Start: December 17, 2024 End: December 17, 2024 FOR RECORDS PERTAINING TO PATIENTS WHO ARE [...] BE BASED ON THE PRIMARY CLINICAL RECORDS. [email or web address] provides no warranty or guarantee of the accuracy or completeness of information in this document.
--- NOTE | 2025-03-04 21:53 | EDS_ITS ---
HPI History of Present Illness Chief Complaint: Dental Narrative Narrative: Patient was seen and examined after presenting to ED for dental pain just had his wisdom teeth removed today his left upper and lower wisdom teeth states that he took 2 doses of Tylenol and ibuprofen and was told to come in if it did not seem to manage it. PFSH PFSH Medical History Alcohol use Rash Gastric reflux COVID Non-smoker Home Medications ?Medication ?Instructions ?Recorded ?Last Taken ?Type clindamycin HCl 300 mg capsule 300 mg PO 4X/DAY 10 day s #40 caps 12/17/24 Unknown Rx (Cleocin HCl) oxycodone-acetaminophen 5 mg-325 1 tab PO Q6H PRN pain 3 days #12 12/17/24 Unknown Rx mg tablet (Percocet) tabs Allergy/AdvReac Type Severity Reaction Status Date / Time No Known Allergies Allergy Verified 03/04/25 19:57 Surgical History History of kidney surgery Social History household members: family current occupational status: employed Smoking Status: Never smoker ROS ROS ED ROS Narrative Pertinent Positives: Dental pain post extraction of wisdom teeth Pertinent Negatives: Fevers chills excessive bleeding The remainder of review of systems negative unless otherwise stated in the HPI above. Systems reviewed including constitutional, psychiatric, cardiovascular, respiratory, integument, HENT, gastrointestinal. EXAM Physical Exam Narrative Exam Narrative: Patient is afebrile hemodynamically stable does not appear toxic or in distress normocephalic atraumatic oropharynx is clear he does have the sockets where there is some blood but bleeding is otherwise controlled no evidence of any surrounding erythema or abscess formation no impending airway normal range of motion of his head and neck Const Vital Signs: 03/04/25 19:56 03/04/25 22:07 Temperature 98.4 F 97.1 F L Temperature Source Temporal Pulse Rate 79 77 Respiratory Rate 18 18 Blood Pressure 138/86 H 140/85 H Blood Pressure Mean 103 103 Pulse Ox 97 97 Oxygen Delivery Method Room Air MDM MDM MDM Narrative Medical decision making narrative: Nursing notes, triage notes, available previous documentation, and vital signs were reviewed. Any discrepancies noted were addressed. Differential Diagnoses: He just had his wisdom teeth pulled the pain is from that he does not have a dry socket he does not use a straw Previous Documentation Reviewed: None available or applicable at this time. ED Course: Patient presenting with symptoms as stated above no labs or imaging are needed I informed patient take 1000 mg of Tylenol 3-4 times a day in addition to 600 to 800 mg of ibuprofen also 3-4 times a day he can follow-up with his medical team. This note was made utilizing voice recognition software. All attempts were made to correct spelling or other errors prior to note completion. However, due to [facility] fast-paced nature of emergency medicine, some errors may still be present. Discharge Plan Triage Chief Complaint: Dental ED Provider: Nicole Hanson Dx/Rx/DC Orders Clinical Impression: Pain, dental, [place] teeth removed Instructions: ED Dental Pain Prescriptions: No Action oxycodone-acetaminophen [Percocet] 5-325 mg tablet 1 tab PO Q6H PRN (Reason: pain) 3 Days Qty: 12 0RF clindamycin HCl [Cleocin HCl] 300 mg capsule 300 mg PO 4X/DAY 10 Days Qty: 40 0RF Primary Care Provider: Care Physician,No Primary Referrals: Care Physician,No Primary [Primary Care Provider, Medical] Print Language: Guatemalan Disposition Disposition: Home, Self Care Discharge Date/Time: 03/04/25 22:08
[2025-03-04 22:07] VITALS: BP 140/85; PULSE 77; RESP 18; TEMP 36.2; O2SAT 97
== END 2025-03-04 22:08 | disposition home or self-care (01) ==
PROVIDERS: Emergency Provider Specialist/Technologist Athletic Trainer; Visit Provider Specialist/Technologist Athletic Trainer
DX: K08.89 Other specified disorders of teeth and supporting structures (principal); Z86.16 Personal history of COVID-19; Z98.818 Other dental procedure status
CPT/HCPCS: 99282